=== PATIENT | female | born 2000 | race Caucasian/White ===

== ENCOUNTER 2021-08-25 23:00 | Inpatient (IN) | payer OTHER, SELFPAY ==
[2021-08-25 23:36] VITALS: BP 122/80; PULSE 100; RESP 18; TEMP 37.1; O2SAT 100; BMI 23.5
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
[2021-08-25] MEDS: LORazepam 1 MG TABLET 2 MG PO (23:57)
[2021-08-26 00:08] LABS: Appearance Urine CLOUDY; Color Urine DK YELLOW; Glucose Urine UA NEG (NEG); Leukocyte Esterase Urine NEG (NEG); Nitrite Urine NEG (NEG); Specific Gravity - Urine >= 1.030 (1.005-1.025); Urine Blood NEG (NEG); Urine Ketones 5 MG/DL (NEG); Urine Protein 2+ MG/DL (NEG-TRACE)
[2021-08-26 00:16] LABS: COVID-19 Test Negative (Negative)
[2021-08-26 00:17] LABS: Amphetamine Screen Urine Not Detected (Not Detect); Barbiturates, Urine Not Detected (Not Detect); Benzodiazepines Screen Urine POSITIVE (Not Detect); Cannabinoid Screen Urine POSITIVE (Not Detect); Cocaine Screen Urine POSITIVE (Not Detect); Fentanyl, urine Not Detected (Not Detect); Opiate Screen Urine Not Detected (Not Detect); Phencyclidine Screen Urine Not Detected (Not Detect)
[2021-08-26 00:28] LABS: Bacteria Urine 3+ /LPF; Mucus Urine 4+ /LPF; RBC Urine 0-2 /HPF (0); Squamous Epithelial Cell Urine 4+ /LPF
[2021-08-26 00:29] LABS: UPreg QC Valid YES; Urine Pregnancy NEGATIVE (NEGATIVE)
[2021-08-26 06:19] VITALS: BP 105/56; PULSE 87; RESP 16; TEMP 36.8; O2SAT 98
--- NOTE | 2021-08-26 06:24 | PC.NURSE ---
Patient slept through the night, no distress observed/reported, patient behavior is appropriate and cooperative, currently not on any medication, [facility] screened the patient in the community, section 12 inpatient bed search, will continue to monitor. VSS, will continue to monitor.
--- NOTE | 2021-08-26 07:21 | PC.NURSE ---
patient appears to remain asleep at present respirations are even and unlabored, patient appears in no distress
[2021-08-26 16:16] VITALS: BP 112/76; PULSE 84; RESP 16; TEMP 36.9; O2SAT 100
[2021-08-27 02:56] VITALS: BP 102/58; PULSE 76; RESP 18; TEMP 36.8; O2SAT 99
--- NOTE | 2021-08-27 05:53 | PC.NURSE ---
Patient slept through the night, no distress observed/reported, patient behavior is appropriate and cooperative, currently not on any medication, disposition per [facility] is section 12 inpatient bed search, will continue to monitor. VSS, will continue to monitor.
[2021-08-27] MEDS: LORazepam 1 MG TABLET PO ×3 (08:58→19:09)
[2021-08-27 09:13] VITALS: BP 117/68; PULSE 68; RESP 18; TEMP 36.6; O2SAT 100
--- NOTE | 2021-08-28 | ECG_ITS ---
Test Reason : qtc Blood Pressure : / mmHG Vent. Rate : 076 BPM Atrial Rate : 076 BPM P-R Int : 134 ms QRS Dur : 088 ms QT Int : 392 ms P-R-T Axes : 066 078 009 degrees QTc Int : 441 ms Normal sinus rhythm with sinus arrhythmia Normal ECG No previous ECGs available Referred By: Magaly Morales Electronically Signed By:Donavan Shoemaker
--- NOTE | 2021-08-28 06:27 | PC.NURSE ---
Patient slept through the night, no distress observed/reported, patient behavior is appropriate and cooperative, medication compliant, disposition per [facility] is section 12 inpatient bed search, will continue to monitor. VSS, will continue to monitor.
[2021-08-28 06:29] VITALS: BP 101/59; PULSE 90; RESP 16; TEMP 37.1; O2SAT 100
--- NOTE | 2021-08-28 07:14 | PC.NURSE ---
patient appears to remain asleep at present respirations are even and unlabored patient appears in no distress
[2021-08-28] MEDS: LORazepam 1 MG TABLET PO ×3 (08:47→17:19)
[2021-08-28] MEDS: Ondansetron ODT 4 MG TAB.RAPDIS TRANSLINGU (09:51)
[2021-08-28 14:00] LABS: COVID-19 Test Negative (Negative)
[2021-08-28 15:02] LABS: MANUAL DIFF FLAG NO
[2021-08-28 15:12] LABS: Basophils Percent Auto 0.4 % (0-2); Eosinophils Percent Auto 0.2 % (0-4); Hematocrit 36.2 % (37.0-47.0); Hemoglobin 11.7 g/dl (12.0-16.0); Imm Gran Abs Auto 0.01 X10*3/uL (0.00-0.03); Imm Gran Pct Auto 0.2 % (0.0-0.4); Lymphocytes Absolute Auto 1.3 X10*3/uL (1.2-4.9); Lymphocytes Percent Auto 25.7 % (20-40); Mean Corpuscular HGB Conc 32.3 g/dl (31.0-35.0); Mean Corpuscular Hemoglobin 25.8 pg (27.0-33.0); Mean Corpuscular Volume 79.9 fL (80.0-98.0); Mean Platelet Volume 8.8 fL (9.4-12.3); Monocytes Absolute Auto 0.5 X10*3/uL (0.1-1.2); Monocytes Percent Auto 9.8 % (2-11); Neutrophils Absolute Auto 3.1 x10*3/uL (2.0-8.3); Neutrophils Percent Auto 63.7 % (45-73); Platelet Count 349 X10*3/uL (160-400); Red Blood Count 4.53 X10*6/uL (4.20-5.50); Red Cell Distribution Width 16.6 % (11.0-16.0); White Blood Count 4.9 X10*3/uL (4.8-10.8)
[2021-08-28 15:18] LABS: Alanine Aminotransferase 14 U/L (0-31); Albumin Level 4.2 g/dL (3.5-5.0); Alkaline Phosphatase 48 U/L (39-117); Anion Gap 11 (12-20); Aspartate Amino Transferase 17 U/L (5-31); Bilirubin Total 0.6 mg/dL (0.0-1.0); Blood Urea Nitrogen 9 mg/dL (9-16); Calcium 9.3 mg/dL (8.4-10.2); Carbon Dioxide 27 mmol/L (22-29); Chloride 107 mmol/L (96-108); Estimated Glomerular Filt Rate > 60; Glucose Random 98 mg/dL (60-115); Potassium 4.2 mmol/L (3.3-5.1); Sodium 141 mmol/L (135-145); Total Protein 7.1 g/dL (6.5-8.0)
--- NOTE | 2021-08-28 16:32 | PC.NURSE ---
Patient is alert and oriented x 4 lung sounds are clear skin is pink warm and dry speaks in full sentences without difficulty verbalized understanding of admission to m3 room 319-1. escorted to the floor via wheelchair, security and staff with belongings
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
[2021-08-29 06:00] VITALS: BP 121/59; PULSE 73; TEMP 36.7; O2SAT 100
[2021-08-29 08:59] LABS: Cholesterol 145 mg/dL; HDL Cholesterol 29 mg/dL; LDL Cholesterol Calculated 105 mg/dl; Triglycerides 56 mg/dL
[2021-08-29 09:00] LABS: Estimated Average Glucose 97 mg/dL
[2021-08-29 09:19] LABS: Free T4 (Free Thyroxine) 1.01 ng/dL (0.71-1.85); Thyroid Stimulating Hormone 1.18 uIU/mL (0.32-4.0)
[2021-08-29 09:38] LABS: Folate 11.6 ng/mL (> or = 4.0); Vitamin B12 545 pg/mL (200-900)
[2021-08-29] MEDS: LORazepam 1 MG TABLET PO (10:56)
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
[2021-08-29] MEDS: PARoxetine HCL 20 MG TABLET PO (12:56)
[2021-08-29] MEDS: diazePAM 5 MG TABLET PO (12:56)
[2021-08-29] MEDS: clonazePAM 0.5 MG TABLET PO ×2 (15:01→20:09)
[2021-08-29 20:05] VITALS: BP 117/72; PULSE 70; RESP 16; TEMP 36.8; O2SAT 98
[2021-08-29] MEDS: traZODone HCL 100 MG TABLET PO (20:09)
[2021-08-30 06:00] VITALS: BP 111/55; PULSE 91; RESP 16; TEMP 36.6; O2SAT 98
[2021-08-30] MEDS: clonazePAM 0.5 MG TABLET PO ×3 (09:11→20:44)
[2021-08-30] MEDS: PARoxetine HCL 20 MG TABLET PO (09:11)
[2021-08-30] MEDS: diazePAM 5 MG TABLET PO ×2 (13:16→18:45)
--- NOTE | 2021-08-30 14:36 | HO.PSYCHPN ---
Subjective Subjective Date of Service: 08/30/21 Reason For Visit: Aggression Interim History: pt reports being up tossing and turning all night. feeling groggy this morning, which she attributes to the trazodone. agrees to DC trazodone in favor of remeron trial. reports her anxiety has improved a bit and that she has only taken the valium PRN once in the past 24H. concerned team would make her go to a rehab without her consent, reassured that that is not the plan. per staff, anx 10, dep 8. angry with MARSHA perez she heard from her mother that team was going to make her go to rehab. Mental Status Exam Mental Status Exam Narrative: appropriately dressed and groomed, cooperative with interview, no PMA/PMR. speech nml rate, amount, loudness, tone. decr latency. thoughts linear and logical. affect full range, consistent with context, normo-intense, non-labile. mood less depressed and anxious. +SI daily, no intent or plan. no HI/AVH expressed. Diagnostics Vital Signs (24Hr): Vital Signs - 24 hr 08/29/21 20:05 08/30/21 06:00 Temperature 98.2 F 97.8 F Pulse Rate 70 91 Respiratory Rate 16 16 Blood Pressure 117/72 111/55 L Pulse Oximetry 98 98 BMI result Body Mass Index 23.5 Labs Results: 08/28/21 14:57 08/28/21 14:57 Labs: Laboratory Results - last 48 hr 08/28/21 08/28/21 08/29/21 14:57 14:57 08:21 WBC 4.9 RBC 4.53 Hgb 11.7 L Hct 36.2 L MCV 79.9 L MCH 25.8 L MCHC 32.3 RDW 16.6 H Plt Count 349 MPV 8.8 L Immature Gran % (Auto) 0.2 Neut % (Auto) 63.7 Lymph % (Auto) 25.7 [place] % (Auto) 9.8 Eos % (Auto) 0.2 Baso % (Auto) 0.4 Lymph # (Auto) 1.3 [place] # (Auto) 0.5 Eos # (Auto) 0.0 Baso # (Auto) 0.0 Abs Immat Gran (auto) 0.01 Absolute Neuts (auto) 3.1 Absolute Nucleated RBC 0.000 Nucleated RBC % (auto) 0.0 Sodium 141 Potassium 4.2 Chloride 107 Carbon Dioxide 27 Anion Gap 11 L BUN 9 Creatinine 0.98 Estim Creat Clear Calc 89.0 Estimated GFR > 60 Random Glucose 98 Estimat Average Glucose 97 Hemoglobin A1c % 5.0 Calcium 9.3 Total Bilirubin 0.6 AST 17 ALT 14 Alkaline Phosphatase 48 Total Protein 7.1 Albumin 4.2 Triglycerides Cholesterol LDL Cholesterol, Calc HDL Cholesterol Vitamin B12 Folate TSH Free T4 08/29/21 08/29/21 08:21 08:21 WBC RBC Hgb Hct MCV MCH MCHC RDW Plt Count MPV Immature Gran % (Auto) Neut % (Auto) Lymph % (Auto) [place] % (Auto) Eos % (Auto) Baso % (Auto) Lymph # (Auto) [place] # (Auto) Eos # (Auto) Baso # (Auto) Abs Immat Gran (auto) Absolute Neuts (auto) Absolute Nucleated RBC Nucleated RBC % (auto) Sodium Potassium Chloride Carbon Dioxide Anion Gap BUN Creatinine Estim Creat Clear Calc Estimated GFR Random Glucose Estimat Average Glucose Hemoglobin A1c % Calcium Total Bilirubin AST ALT Alkaline Phosphatase Total Protein Albumin Triglycerides 56 Cholesterol 145 LDL Cholesterol, Calc 105 HDL Cholesterol 29 Vitamin B12 545 Folate 11.6 TSH 1.18 Free T4 1.01 Medications Medications Current Medications Acetaminophen (Acetaminophen 325 Mg Tablet) 650 mg PO Q6H PRN PRN Reason: Headache/Pain Mild Scale (1-3) Al Hydroxide/Mg Hydroxide (Magnesium Hydrox/Alum Hydrox 30 Ml Oral.Susp) 30 ml PO Q6H PRN PRN Reason: Heartburn/Nausea Clonazepam (Clonazepam 0.5 Mg Tablet) 0.5 mg PO TID [facility] Last Admin: 08/30/21 09:11 Dose: 0.5 mg Documented by: Diazepam (Diazepam 5 Mg Tablet) 5 mg PO Q4H PRN PRN Reason: panic Last Admin: 08/30/21 13:16 Dose: 5 mg Documented by: Hydroxyzine HCl (Hydroxyzine Hcl 25 Mg Tablet) 25 mg PO Q6H PRN PRN Reason: Anxiety Magnesium Hydroxide (Milk Of Magnesia 30 Ml Oral.Susp) 30 ml PO DAILY PRN PRN Reason: Constipation Mirtazapine (Mirtazapine 7.5 Mg Tablet) 7.5 mg PO BEDTIME MRX1 [facility] Paroxetine HCl (Paroxetine Hcl 20 Mg Tablet) 20 mg PO DAILY [facility] Last Admin: 08/30/21 09:11 Dose: 20 mg Documented by: Allergies Allergies Allergy/AdvReac Type Severity Reaction Status Date / Time gluten Allergy Intermediate Diarrhea Verified 08/27/21 03:14 Assessment & Plan Assessment & Plan (1) PTSD (post-traumatic stress disorder): Status: Acute Code(s): F43.10 - Post-traumatic stress disorder, unspecified (2) Depression, unspecified: Status: Acute Code(s): F32.A - Depression, unspecified Assessment and Plan: started paxil 20 mg daily 08/29. started valium PRNs of 5 mg Q4H for PANIC on 08/29. started scheduled klonopin 0.5 mg TID 08/29. trazodone 100 mg QHS for insomnia, MR x1 left pt feeling groggy 08/30. trial of remeron 7.5 mg MR x 1 started 08/30. I spent minutes with the patient and/or on the patient floor today, greater than?50% of which was spent counseling/coordinating care. Reason for contiued inpatient stay Substantial Risk for: harm to self and rapid decompensation
[2021-08-30] MEDS: Mirtazapine 7.5 MG TABLET PO ×2 (20:43→21:51)
[2021-08-30 20:46] VITALS: BP 100/60; PULSE 71; TEMP 36.4; O2SAT 98
[2021-08-31 07:00] VITALS: BMI 22.4
[2021-08-31] MEDS: clonazePAM 0.5 MG TABLET PO ×2 (09:58→20:15)
[2021-08-31] MEDS: PARoxetine HCL 20 MG TABLET PO (09:58)
[2021-08-31 10:00] VITALS: BP 113/59; PULSE 68; RESP 16; TEMP 36.4; O2SAT 99
[2021-08-31] MEDS: clonazePAM 1 MG TABLET 0.75 MG PO (12:52)
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
[2021-08-31] MEDS: diazePAM 5 MG TABLET PO (15:37)
[2021-08-31 20:09] VITALS: BP 110/68; PULSE 69; TEMP 36.8; O2SAT 99
[2021-08-31] MEDS: Mirtazapine 7.5 MG TABLET PO (22:20)
[2021-09-01] MEDS: PARoxetine HCL 20 MG TABLET PO (10:16)
[2021-09-01] MEDS: clonazePAM 0.5 MG TABLET PO ×4 (10:16→21:25)
[2021-09-01 10:20] VITALS: BP 119/75; PULSE 60; TEMP 36.8; O2SAT 98
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
[2021-09-01 21:25] VITALS: BP 115/63; PULSE 60; TEMP 36.3; O2SAT 99
[2021-09-01] MEDS: Mirtazapine 7.5 MG TABLET PO (21:25)
[2021-09-02 06:00] VITALS: BP 93/53; PULSE 60; RESP 18; TEMP 37.2; O2SAT 97
[2021-09-02] MEDS: clonazePAM 0.5 MG TABLET PO ×4 (09:37→20:27)
[2021-09-02] MEDS: PARoxetine HCL 20 MG TABLET PO (09:37)
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
[2021-09-02 18:20] VITALS: BP 113/65; PULSE 59; RESP 18; TEMP 36.5; O2SAT 100
[2021-09-02] MEDS: Mirtazapine 7.5 MG TABLET PO (21:32)
[2021-09-03 09:18] VITALS: BP 119/72; PULSE 73; RESP 15; TEMP 36.6; O2SAT 99
[2021-09-03] MEDS: clonazePAM 0.5 MG TABLET PO ×4 (09:18→22:04)
[2021-09-03] MEDS: PARoxetine HCL 20 MG TABLET PO (09:19)
[2021-09-03] MEDS: Carbamide Peroxide 6.5% Otic 15 ML DRPBTL 5 DROP EAR-BOTH (11:18)
--- NOTE | 2021-09-03 11:23 | HO.PSYCHPN ---
Subjective Subjective Date of Service: 09/03/21 Reason For Visit: Aggression Interim History: no significant changes since yesterday. Overall continues to report feeling good. Looking forward to discharge planning on Saturday. Reported feeling of water and her left ear and open to trying ear drops today. Unclear why they were reluctant to try these yesterday. Sleep energy and appetite good. No medication concerns. Medication Compliance: Yes Side effects from medications: No Attending Groups: Yes Review of Systems Acute medical concerns: No Review of Systems Review of Systems Unremarkable Mental Status Exam Mental Status Exam Narrative: pleasant and engaged. Casually dressed with fair hygiene. Euthymic. No SI. No HI. No agitation. No psychosis. Insight and judgment fair Diagnostics Vital Signs (24Hr): Vital Signs - 24 hr 09/02/21 18:20 09/03/21 09:18 Temperature 97.7 F 97.8 F Pulse Rate 59 73 Respiratory Rate 18 15 Blood Pressure 113/65 119/72 Pulse Oximetry 100 99 BMI result Body Mass Index 22.4 Labs Results: 08/28/21 14:57 08/28/21 14:57 Medications Medications Current Medications Acetaminophen (Acetaminophen 325 Mg Tablet) 650 mg PO Q6H PRN PRN Reason: Headache/Pain Mild Scale (1-3) Al Hydroxide/Mg Hydroxide (Magnesium Hydrox/Alum Hydrox 30 Ml Oral.Susp) 30 ml PO Q6H PRN PRN Reason: Heartburn/Nausea Clonazepam (Clonazepam 0.5 Mg Tablet) 0.5 mg PO QID [facility] Last Admin: 09/03/21 09:18 Dose: 0.5 mg Documented by: Diazepam (Diazepam 5 Mg Tablet) 5 mg PO Q4H PRN PRN Reason: panic Last Admin: 08/31/21 15:37 Dose: 5 mg Documented by: Hydroxyzine HCl (Hydroxyzine Hcl 25 Mg Tablet) 25 mg PO BEDTIME PRN PRN Reason: Insomnia Magnesium Hydroxide (Milk Of Magnesia 30 Ml Oral.Susp) 30 ml PO DAILY PRN PRN Reason: Constipation Mirtazapine (Mirtazapine 7.5 Mg Tablet) 7.5 mg PO BEDTIME [facility] Last Admin: 09/02/21 21:32 Dose: 7.5 mg Documented by: Paroxetine HCl (Paroxetine Hcl 20 Mg Tablet) 20 mg PO DAILY [facility] Last Admin: 09/03/21 09:19 Dose: 20 mg Documented by: Allergies Allergies Allergy/AdvReac Type Severity Reaction Status Date / Time gluten Allergy Intermediate Diarrhea Verified 08/27/21 03:14 Assessment & Plan Assessment & Plan (1) PTSD (post-traumatic stress disorder): Status: Acute Code(s): F43.10 - Post-traumatic stress disorder, unspecified (2) Depression, unspecified: Status: Acute Code(s): F32.A - Depression, unspecified Assessment and Plan: started paxil 20 mg daily 08/29. started valium PRNs of 5 mg Q4H for PANIC on 08/29. started scheduled klonopin 0.5 mg TID 08/29. dosing changed to 0.5/0.75/0.5 on 08/31. dosing changed to 0.5 mg qid 09/01. trazodone 100 mg QHS for insomnia, MR x1 left pt feeling groggy 08/30. trial of remeron 7.5 mg MR x 1 started 08/30. remeron 15 mg was too sedating so plan changed to remeron 7.5 plus hydroxyzine 25 PRN. sleeping well on remeron 7.5 mg QHS with klonopin as well. discharge saturday to outpt F/U. 09/03/2021: No changes to primary team treatment plan I spent minutes with the patient and/or on the patient floor today, greater than?50% of which was spent counseling/coordinating care. Reason for contiued inpatient stay Substantial Risk for: rapid decompensation
[2021-09-03] MEDS: Magnesium Hydrox/Alum Hydrox 30 ML ORAL.SUSP PO (18:13)
--- NOTE | 2021-09-03 18:34 | PC.NURSE ---
Patient ordered a burger on a gluten free roll. When the kitchen brought up the food cart at 18:15, pt's gluten-free bread was on the side but the burger was on a regular roll. Pt has Celiac's disease and requires her meals to be gluten-free, and as a result she was unable to eat her dinner. When we called the kitchen at 18:20, they told us that nothing could be done because the kitchen had already closed. Pt was unable to eat anything for dinner. This incident has occurred multiple times since patient has been admitted; Annie (RN) emailed Fish.
[2021-09-03 21:41] VITALS: BP 105/57; PULSE 64; RESP 18; TEMP 36.5; O2SAT 98
[2021-09-03] MEDS: Mirtazapine 7.5 MG TABLET PO (22:04)
[2021-09-04 08:00] VITALS: BP 113/62; PULSE 64; TEMP 36.6; O2SAT 99
[2021-09-04] MEDS: clonazePAM 0.5 MG TABLET PO ×4 (08:50→20:14)
[2021-09-04] MEDS: PARoxetine HCL 20 MG TABLET PO (08:50)
--- NOTE | 2021-09-04 15:59 | HO.PSYCHPN ---
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 she is smiling, positive, states her anxiety is under good control. sleeping well, planning to discharge tomorrow at 11, no other complaints or requests. per staff, visible, watching TV, social. feels all right. decreased appetite, upset dietary has not been providing her with a gluten-free diet. no SI/HI. Mental Status Exam Mental Status Exam Narrative: appropriately dressed and groomed, cooperative with interview, no PMA/PMR. speech nml rate, amount, loudness, tone, latency. thoughts linear and logical. affect full range, consistent with context, normo-intense, non-labile. depression and anxiety improved. no SI/HI/AVH expressed. Diagnostics Vital Signs (24Hr): Vital Signs - 24 hr 09/03/21 21:41 09/04/21 08:00 Temperature 97.7 F 98 F Pulse Rate 64 64 Respiratory Rate 18 Blood Pressure 105/57 L 113/62 Pulse Oximetry 98 99 BMI result Body Mass Index 22.4 Labs Results: 08/28/21 14:57 08/28/21 14:57 Medications Medications Current Medications Acetaminophen (Acetaminophen 325 Mg Tablet) 650 mg PO Q6H PRN PRN Reason: Headache/Pain Mild Scale (1-3) Al Hydroxide/Mg Hydroxide (Magnesium Hydrox/Alum Hydrox 30 Ml Oral.Susp) 30 ml PO Q6H PRN PRN Reason: Heartburn/Nausea Last Admin: 09/03/21 18:13 Dose: 30 ml Documented by: Clonazepam (Clonazepam 0.5 Mg Tablet) 0.5 mg PO QID [facility] Last Admin: 09/04/21 12:54 Dose: 0.5 mg Documented by: Hydroxyzine HCl (Hydroxyzine Hcl 25 Mg Tablet) 25 mg PO BEDTIME PRN PRN Reason: Insomnia Magnesium Hydroxide (Milk Of Magnesia 30 Ml Oral.Susp) 30 ml PO DAILY PRN PRN Reason: Constipation Mirtazapine (Mirtazapine 7.5 Mg Tablet) 7.5 mg PO BEDTIME [facility] Last Admin: 09/03/21 22:04 Dose: 7.5 mg Documented by: Paroxetine HCl (Paroxetine Hcl 20 Mg Tablet) 20 mg PO DAILY [facility] Last Admin: 09/04/21 08:50 Dose: 20 mg Documented by: Allergies Allergies Allergy/AdvReac Type Severity Reaction Status Date / Time gluten Allergy Intermediate Diarrhea Verified 08/27/21 03:14 Assessment & Plan Assessment & Plan (1) PTSD (post-traumatic stress disorder): Status: Acute Code(s): F43.10 - Post-traumatic stress disorder, unspecified (2) Depression, unspecified: Status: Acute Code(s): F32.A - Depression, unspecified Assessment and Plan: started paxil 20 mg daily 08/29. started valium PRNs of 5 mg Q4H for PANIC on 08/29. started scheduled klonopin 0.5 mg TID 08/29. dosing changed to 0.5/0.75/0.5 on 08/31. dosing changed to 0.5 mg qid 09/01. trazodone 100 mg QHS for insomnia, MR x1 left pt feeling groggy 08/30. trial of remeron 7.5 mg MR x 1 started 08/30. remeron 15 mg was too sedating so plan changed to remeron 7.5 plus hydroxyzine 25 PRN. sleeping well on remeron 7.5 mg QHS with klonopin as well. discharge saturday to pt F/U. I spent minutes with the patient and/or on the patient floor today, greater than?50% of which was spent counseling/coordinating care. Reason for contiued inpatient stay Substantial Risk for: inability to function and rapid decompensation
[2021-09-04 18:00] VITALS: BP 112/54; PULSE 64; TEMP 36.7; O2SAT 100
[2021-09-04] MEDS: Mirtazapine 7.5 MG TABLET PO (20:14)
[2021-09-05] MEDS: PARoxetine HCL 20 MG TABLET PO (08:32)
[2021-09-05] MEDS: clonazePAM 0.5 MG TABLET PO (08:55)
[2021-09-05 09:00] VITALS: BP 110/57; PULSE 61; RESP 16; TEMP 36.7; O2SAT 99
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
== END 2021-09-05 11:05 | disposition home or self-care (01) | DRG 754 ==
LOC: HO.ED 08-28 11:33 → HO.PADLT16 08-28 16:24
PROVIDERS: Physician Assistant; Social Worker; Admitting Provider Psychiatry & Neurology Psychiatry; Emergency Provider Emergency Medicine Emergency Medical Services; Visit Provider Psychiatry & Neurology Psychiatry
DX: F32.A Depression, unspecified (principal); R45.851 Suicidal ideations; K90.0 Celiac disease; F43.10 Post-traumatic stress disorder, unspecified; Z20.822 Contact with and (suspected) exposure to COVID-19; Z79.899 Other long term (current) drug therapy
CPT/HCPCS: 36415; 80053; 80061; 80307; 81001; 81003; 81025; 82607; 82746; 83036; 84439; 84443; 85025; 87635; 93005; 99284

== ENCOUNTER 2024-05-05 22:39 | Emergency (ER) | payer OTHER, SELFPAY ==
--- NOTE | ~2024-05-05 | CT_ITS ---
EXAMINATION: CT ABDOMEN AND PELVIS WITHOUT CONTRAST CLINICAL INFORMATION: Right CVA tenderness. COMPARISON: None available. TECHNIQUE: Multidetector volumetric imaging was performed from the superior aspect of the liver through the pubic symphysis. Sagittal and coronal reformatted images were obtained on the technologist's workstation. This CT examination was performed using dose optimization techniques as appropriate, variously including the following: *Automated exposure control *Adjustment of mA and/or kV according to patient size (this includes techniques or standardized protocols for targeted exams where dose is matched to indication/reason for exam; i.e. extremities or head) *Use of iterative reconstruction technique DLP: 630 mGy-cm FINDINGS: LUNG BASES: The visualized lung bases are unremarkable. LIVER, GALLBLADDER, AND BILIARY TREE: The liver is normal in size, shape, and attenuation. No focal hepatic lesion or biliary ductal dilatation is present. Multiple gallstones are seen within a nondistended gallbladder. PANCREAS: Unremarkable. SPLEEN: Unremarkable. ADRENAL GLANDS: Unremarkable. KIDNEYS AND URETERS: The kidneys are normal in size, shape, and attenuation. No hydronephrosis, hydroureter, or calculi seen. No perinephric stranding. There appears to be mild right ureteral thickening. No ureteral calculi are seen. BLADDER: Unremarkable. GASTROINTESTINAL TRACT: The small and large bowel are unremarkable. The appendix is unremarkable. ABDOMINAL WALL: No significant hernia is appreciated. LYMPH NODES: Normal. VASCULAR: Unremarkable. PELVIC VISCERA: Unremarkable. OSSEOUS STRUCTURES: Unremarkable. CT/CT abdomen pelvis wo IV con IMPRESSION: 1. No renal calculi are seen. 2. There appears to be mild right ureteral thickening which could be due to a recently passed stone versus ascending infection. 3. Cholelithiasis without cholecystitis. Fleischner guidelines were followed. Electronically signed by: Jong Lombardi MD 05/06/2024 04:49 AM EDT
[2024-05-05 22:41] VITALS: BP 150/88; PULSE 109; RESP 18; TEMP 36.8; O2SAT 98; BMI 31.1
[2024-05-05 23:08] LABS: MANUAL DIFF FLAG NO
[2024-05-05 23:11] LABS: Basophils Percent Auto 0.5 % (0-2); Eosinophils Absolute Auto 0.2 X10*3/uL (0.0-0.4); Eosinophils Percent Auto 3.2 % (0-4); Hematocrit 34.1 % (37.0-47.0); Hemoglobin 11.3 g/dl (12.0-16.0); Imm Gran Abs Auto 0.02 X10*3/uL (0.00-0.03); Imm Gran Pct Auto 0.4 % (0.0-0.4); Lymphocytes Percent Auto 35.2 % (20-40); Mean Corpuscular HGB Conc 33.1 g/dl (31.0-35.0); Mean Corpuscular Hemoglobin 25.5 pg (27.0-33.0); Monocytes Absolute Auto 0.4 X10*3/uL (0.1-1.2); Monocytes Percent Auto 7.8 % (2-11); Neutrophils Percent Auto 52.9 % (45-73); Platelet Count 393 X10*3/uL (160-400); Red Blood Count 4.43 X10*6/uL (4.20-5.50); Red Cell Distribution Width 17.2 % (11.0-16.0); White Blood Count 5.7 X10*3/uL (4.8-10.8)
[2024-05-05 23:30] LABS: Alanine Aminotransferase 14 U/L (0-31); Albumin Level 4.4 g/dL (3.5-5.0); Alkaline Phosphatase 55 U/L (39-117); Anion Gap 12 (12-20); Aspartate Amino Transferase 15 U/L (5-31); Bilirubin Total 0.3 mg/dL (0.0-1.0); Blood Urea Nitrogen 10 mg/dL (9-16); Calcium 9.3 mg/dL (8.4-10.2); Carbon Dioxide 21 mmol/L (22-29); Chloride 110 mmol/L (96-108); Creatinine Clr Calc Pharmacy 129.3; Estimated Glomerular Filt Rate > 60; Glucose Random 120 mg/dL (60-115); Potassium 3.7 mmol/L (3.3-5.1); Sodium 139 mmol/L (135-145); Total Protein 7.8 g/dL (6.5-8.0)
[2024-05-06 00:23] LABS: Appearance Urine Cloudy; Color Urine Yellow; Glucose Urine UA Negative (Negative); Leukocyte Esterase Urine Large (3+) (Negative); Nitrite Urine Negative (Negative); Specific Gravity - Urine <= 1.005 (1.005-1.025); UMIC TRIGGER UACC YES; Urine Blood Moderate (2+) (Negative); Urine Ketones Negative (Negative); Urine Protein Trace mg/dL (Neg-Trace)
[2024-05-06 00:24] LABS: UPreg QC Valid YES; Urine Pregnancy NEGATIVE (NEGATIVE)
[2024-05-06 00:39] LABS: Bacteria Urine None Seen (None Seen); Hyaline Casts Urine 0-2 /LPF (0-2); RBC Urine 0-2 /HPF (0-2); Squamous Epithelial Cell Urine 0-2 /HPF (0-2); UACC Culture Trigger YES; WBC Urine >50 /HPF (0-5)
--- NOTE | 2024-05-06 01:16 | ED.FEMALEGU ---
HPI - Female Genitourinary General Chief complaint: Urogenital-Female Stated complaint: ? uti Time Seen by Provider: 05/06/24 01:16 Source: patient Mode of arrival: ambulatory Limitations: no limitations History of Present Illness HPI Narrative: Patient is a 24-year-old female who presents emergency department for evaluation. She states that for the past 5 days she has been experiencing right-sided lower/mid abdominal pain and right flank pain. Admits to dark yellow appearing urine occasionally with burning sensation. She also states she is experiencing urinary hesitancy. At times she notices small amounts of alexis blood in the urine. She states that she has a history of ?urinary tract infections? that sometimes last for a day and resolve, described as having similar symptoms as previously mentioned. She states she has not previously received treatment with antibiotics for any urinary infections, she treats them with water and cranberry juice. She has chronic constipation that she states is due to her celiac disease. When asked whether she is concern for sexually transmitted infection she does admit to having new female partners, denies vaginal itching or discharge. She declines to have a genital examination. States she is not currently menstruating. Related Data Previous Rx's ?Medication ?Instructions ?Recorded clonazepam 0.5 mg tablet 0.5 mg PO QID 30 days #120 tabs 09/05/21 mirtazapine 7.5 mg tablet 7.5 mg PO BEDTIME 30 days #30 tabs 09/05/21 paroxetine HCl 20 mg tablet 20 mg PO DAILY 30 days #30 tabs 09/05/21 cefuroxime axetil 250 mg tablet 250 mg PO BID #12 tabs 05/06/24 Allergies Allergy/AdvReac Type Severity Reaction Status Date / Time gluten Allergy Intermediate Diarrhea Verified 05/05/24 22:42 Review of Systems Review of Systems: Yes all other systems are reviewed and are negative PMFSH Past Medical History Attestation statement: The following information was validated with the patient. Medical History Marijuana abuse Cocaine abuse Benzodiazepine abuse Social History Social History Household Members: Family Housing: Apartment Do you presently have visiting nurse or other home services: No Patient Tobacco Use Status: Never used Tobacco Substance Use Type: Prescription Drugs Do you have a plan to hurt others: No Plan service: No Sexual orientation: Don't Know Physical Exam Vital Signs: Vital Signs: Last Vital Signs Temp 98.2 F 05/05/24 22:41 Pulse 109 H 05/05/24 22:41 Resp 18 05/05/24 22:41 BP 150/88 H 05/05/24 22:41 Pulse Ox 98 05/05/24 22:41 O2 Del Method Room Air 05/05/24 22:41 BMI result Body Mass Index 31.1 Appearance: Alert.?Oriented to person, place and time. No acute distress.?Normal affect. Neck: Normal inspection.? Neck supple.?? CVS: Heart sounds normal. Normal heart rate and rhythm.? Pulses normal.?? Respiratory: No respiratory distress.? Lung sounds clear to auscultation bilaterally?? Abdomen: Soft with mild diffuse right abdominal tenderness upon palpation. No rebound tenderness. No rigidity. No guarding. Positive right CVAT. Normoactive bowel sounds. No pulsatile mass.?? Skin: Skin warm and dry.? Normal skin color.? ? Extremities: No lower extremity edema.? No calf ttp? Neuro: Moves all extremities spontaneously. Sensation intact bilaterally. Ambulates with normal steady gait. Course Reevaluation(s) Reevaluation #1: Patient signed out to doctor's [address] abdomen and pelvis, disposition Time: 02:00 Medical Decision Making Medical Decision Making MDM Narrative: Patient is a 24-year-old female who presents emergency department for evaluation of right-sided abdominal/flank pain with symptoms as per HPI. She expresses concern for sexually transmitted infection, she declines to have urogenital or pelvic examination. She is amenable to self swabbing for CT/NG and bacterial vaginosis panel. Given her intermittent episodes of urinary hesitancy, intermittent small amounts of hematuria, concern for possible urinary tract infection/pyelonephritis given her associated flank pain and CVAT on examination versus nephrolithiasis. She is endorsing chronic constipation but states this is no worse than typical, has not experienced associated diarrhea, nausea, vomiting, fevers, chills. Differential Diagnosis Differential Diagnoses: The differential diagnosis associated with the presentation includes (See narrative above) Admission/Observation Consideration of admission/observation: Escalation of care including admission/observation considered (See narrative above) Lab Data [facility] Lab Attestation statement: I reviewed the patient's lab results. CBC is without leukocytosis, microcytic anemia that does not meet transfusion criteria, no thrombocytopenia. No significant electrolyte derangement. No LAW. LFTs within normal range. Urinalysis with microscopic hematuria, 3+ leukocyte esterase, > 50 WBC but no urine bacteria seen. HCG is negative. 05/05/24 22:56 05/05/24 22:56 Labs: Lab Results 05/05/24 05/06/24 Range/Units 22:56 00:14 WBC 5.7 (4.8-10.8) X10*3/uL RBC 4.43 (4.20-5.50) X10*6/uL Hgb 11.3 L (12.0-16.0) g/dl Hct 34.1 L (37.0-47.0) % MCV 77.0 L (80.0-98.0) fL MCH 25.5 L (27.0-33.0) pg MCHC 33.1 (31.0-35.0) g/dl RDW 17.2 H (11.0-16.0) % Plt Count 393 (160-400) X10*3/uL MPV 9.0 L (9.4-12.3) fL Immature Gran % (Auto) 0.4 (0.0-0.4) % Neut % (Auto) 52.9 (45-73) % Lymph % (Auto) 35.2 (20-40) % [place] % (Auto) 7.8 (2-11) % Eos % (Auto) 3.2 (0-4) % Baso % (Auto) 0.5 (0-2) % Lymph # (Auto) 2.0 (1.2-4.9) X10*3/uL [place] # (Auto) 0.4 (0.1-1.2) X10*3/uL Eos # (Auto) 0.2 (0.0-0.4) X10*3/uL Baso # (Auto) 0.0 (0.0-0.2) X10*3/uL Abs Immat Gran (auto) 0.02 (0.00-0.03) X10*3/uL Absolute Neuts (auto) 3.0 (2.0-8.3) x10*3/uL Absolute Nucleated RBC 0.000 (0.0-0.012) X10*3/uL Nucleated RBC % (auto) 0.0 (0.0-0.2) /100WBC Sodium 139 (135-145) mmol/L Potassium 3.7 (3.3-5.1) mmol/L Chloride 110 H (96-108) mmol/L Carbon Dioxide 21 L (22-29) mmol/L Anion Gap 12 (12-20) BUN 10 (9-16) mg/dL Creatinine 0.78 (0.5-1.4) mg/dL Estim Creat Clear Calc 129.3 Estimated GFR > 60 Random Glucose 120 H (60-115) mg/dL Calcium 9.3 (8.4-10.2) mg/dL Total Bilirubin 0.3 (0.0-1.0) mg/dL AST 15 (5-31) U/L ALT 14 (0-31) U/L Alkaline Phosphatase 55 (39-117) U/L Total Protein 7.8 (6.5-8.0) g/dL Albumin 4.4 (3.5-5.0) g/dL Urine Color Yellow Urine Appearance Cloudy Urine pH 6.0 (5.0-9.0) Ur Specific [place] <= 1.005 (1.005-1.025) Urine Protein Trace (Neg-Trace) mg/dL Urine Glucose (UA) Negative (Negative) mg/dL Urine Ketones Negative (Negative) mg/dL Urine Blood Moderate (2+) H (Negative) Urine Nitrite Negative (Negative) Ur Leukocyte Esterase Large (3+) H (Negative) Urine RBC 0-2 (0-2) /HPF Urine WBC >50 H (0-5) /HPF Ur Squamous Epith Cells 0-2 (0-2) /HPF Urine Bacteria None Seen (None Seen) Hyaline Casts 0-2 (0-2) /LPF Urine Test NEGATIVE (NEGATIVE) Radiology Impression Discussion of test interpretation with radiology: I have reviewed the radiologist's reading. External Record Review External record reviewed: Outpatient record Prescription Management I considered prescription management with: Pain Medication and Antibiotic Discharge Plan Discharge Clinical Impression: Urinary tract infection Patient Disposition: Still a Patient Prescriptions: New cefuroxime axetil 250 mg tablet 250 mg PO BID Qty: 12 0RF No Action clonazepam 0.5 mg Tablet 0.5 mg PO QID 30 Days Qty: 120 0RF paroxetine HCl 20 mg Tablet 20 mg PO DAILY 30 Days Qty: 30 0RF mirtazapine 7.5 mg Tablet 7.5 mg PO BEDTIME 30 Days Qty: 30 0RF Print Language: Japanese
[2024-05-06] MEDS: Ketorolac Tromethamine 15 MG/ML VIAL IVPUSH (01:57)
[2024-05-06 02:00] VITALS: BP 118/60; PULSE 90; RESP 16; TEMP 36.9; O2SAT 98
[2024-05-06] MEDS: cefTRIAXone sodium 1 GM in 0.9 % Sodium Chloride 50 ML IV (02:10)
[2024-05-06 04:00] VITALS: BP 113/69; PULSE 77; RESP 18; TEMP 36.8; O2SAT 99
[2024-05-06 05:52] VITALS: BP 118/72; PULSE 72; RESP 16; TEMP 36.7; O2SAT 97
[2024-05-06 13:01] LABS: Bacterial Vaginosis PCR NEGATIVE (Negative); Candida Group PCR DETECTED (Not Detect); Candida glab krusei PCR NOT DETECTED (Not Detect); Trichomonas vaginalis PCR NOT DETECTED (Not Detect)
== END 2024-05-06 05:54 | disposition home or self-care (01) ==
PROVIDERS: Nurse Practitioner Family; Emergency Provider Internal Medicine
DX: B37.49 Other urogenital candidiasis (principal); R10.30 Lower abdominal pain, unspecified
CPT/HCPCS: 0352U; 36415; 74176; 80053; 81001; 81025; 85025; 87086; 87088; 87186; 96365; 96375; 99284; J0696; J1885

== ENCOUNTER 2024-06-12 06:51 | Emergency (ER) | payer OTHER, SELFPAY ==
[2024-06-12 07:09] VITALS: BP 139/75; BP 144/80; PULSE 84; PULSE 91; RESP 16; TEMP 36.4; O2SAT 97; O2SAT 98; BMI 31.2
--- NOTE | 2024-06-12 07:24 | ED_ITS ---
HPI - Animal Bite General Chief Complaint: Animal Bite Stated Complaint: bit by dog @4-5pm 06/11, numbness where bit Time Seen by Provider: 06/12/24 07:06 Source: patient, EMS, RN notes reviewed and old records reviewed Mode of arrival: EMS History of Present Illness ED Provider: Willa Maguire PA-C HPI narrative: 24-year-old female with a past medical history PTSD, anxiety, presenting to the ED complaining of dog bite to left calf that occurred last night around 17:00 when her dog & another dog that were in a fight. 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 Patient is not up-to-date on vaccination. Denies injury to other area. Reports associated paresthesias to LLE. Related Data Previous Rx's ?Medication ?Instructions ?Recorded clonazepam 0.5 mg tablet 0.5 mg PO QID 30 days #120 tabs 09/05/21 mirtazapine 7.5 mg tablet 7.5 mg PO BEDTIME 30 days #30 tabs 09/05/21 paroxetine HCl 20 mg tablet 20 mg PO DAILY 30 days #30 tabs 09/05/21 cefuroxime axetil 250 mg tablet 250 mg PO BID #12 tabs 05/06/24 fluconazole 150 mg tablet 150 mg PO Q3D 2 doses #2 tabs 05/08/24 nitrofurantoin 100 mg PO Q12H 7 days #14 caps 05/08/24 monohydrate/macrocrystals 100 mg capsule (Macrobid) amoxicillin 875 mg-potassium 1 tab PO BID 7 days #14 tabs 06/12/24 clavulanate 125 mg tablet bacitracin 500 unit/gram topical 1 appl topical BID #30 grams 06/12/24 ointment Allergies Allergy/AdvReac Type Severity Reaction Status Date / Time gluten Allergy Intermediate Diarrhea Verified 06/12/24 07:13 Review of Systems Review of Systems: Yes all other systems are reviewed and are negative Constitutional: Constitutional: Reports as per HPI [facility] Past Medical History Attestation statement: The following information was validated with the patient. Source: old records reviewed Medical History Marijuana abuse Cocaine abuse Benzodiazepine abuse Social History Social History Household Members: Family Housing: Apartment Do you presently have visiting nurse or other home services: No Patient Tobacco Use Status: Never used Tobacco Substance Use Type: Prescription Drugs Advance Directives: No Advance Directives Information Provided: Yes Do you have a plan to hurt others: No Plan service: No Sexual orientation: Don't Know Physical Exam ED Vital Signs: Vital Signs - 24 hr 06/12/24 07:09 06/12/24 07:59 Temperature 97.6 F 97.6 F Pulse Rate 84 84 Respiratory Rate 16 16 Blood Pressure 139/75 139/75 Pulse Oximetry 98 98 Oxygen Delivery Method Room Air Room Air BMI result Body Mass Index 31.2 Const General: cooperative, healthy appearing and no acute distress Orientation/consciousness: patient oriented x3 Limitations: no limitations HENMT Head: Yes normal to inspection and Yes atraumatic Ears: hearing grossly normal bilaterally General nose exam: Normal external nose present Face and sinus: Yes normal facial exam Eyes General: appearance normal, both eyes and all related structures EOM: EOMs intact bilaterally Neck Neck: Yes normal visual inspection and Yes no meningeal signs Resp Effort & Inspection: normal respiratory effort and no respiratory distress Cardio Rate: regular rate Skin Other: Superficial abrasion and small puncture wound noted to left calf with surrounding ecchymosis. Tender to palpation. No fluctuance/induration or active drainage. No crepitus. Neurovascularly intact distally. Rashes: no rashes Neuro General: patient oriented x3, tone normal and no meningeal signs Cranial nerves: Yes CN's II-XII intact bilaterally Gait exam (Neuro): Normal gait present Extrem General: Yes normal to inspection Medications Administered Discontinued Medications Generic Name Dose Route Start Last Admin Trade Name Freq PRN Reason Stop Dose Admin Amoxicillin/Clavulanate Potassium 875 mg 06/12/24 07:24 06/12/24 07:43 Amoxicillin/Potassium Clav 875 Mg Tablet PO 06/12/24 07:25 875 mg ONCE ONE Administration Diphtheria/Tetanus/Acell Pertussis 0.5 ml 06/12/24 07:24 06/12/24 07:43 Diphth,Pertus(Acell),Tet Adult 0.5 Ml Syringe IM 06/12/24 07:25 0.5 ml .ONCE ONE Administration Medical Decision Making Medical Decision Making MDM Narrative: 24-year-old female with a past medical history PTSD, anxiety, presenting to the ED complaining of dog bite to left calf that occurred last night around 17:00 when her dog & another dog that were in a fight. On exam vital signs stable, NAD, nontoxic appearing, physical exam as noted above. Puncture wound/abrasion and ecchymosis noted to left calf. Wounds not needing suture repair. No appreciable surrounding cellulitis or abscess formation. Dog is up-to-date on vaccinations. Patient is not up-to-date. Plan: Tdap, p.o. Augmentin, PCP follow-up Please refer to course for remaining clinical decision making, interpretation of labs/imaging results, and discussions with consultants and/or family members. Results discussed with patient including worrisome signs and symptoms and strict return precautions, and when to return to the emergency department. They verbalized understanding and feel safe for discharge at this time. Differential Diagnosis Differential Diagnoses: The differential diagnosis associated with the presentation includes As above External Record Review External record reviewed: Inpatient record, Office record, Outpatient record, Prior outpatient labs, Prior outpatient radiology, Primary care record and Outside ED record Tests considered The following testing was considered but not selected: As above Prescription Management I considered prescription management with: Pain Medication and Antibiotic Discharge Plan Discharge Clinical Impression: Dog bite Patient Disposition: Home, Self-Care Instructions: Animal Bite (ED) Additional Instructions: Keep bite area dry and clean Take oral Augmentin as prescribed until completion You may apply topical bacitracin/triple antibiotic ointment Very begins to look worse, increasingly swollen, red, there is pus drainage or you have fever return to the ED immediately Follow-up with her doctor. Your tetanus was updated today Prescriptions: New amoxicillin-pot clavulanate 875-125 mg tablet 1 tab PO BID 7 Days Qty: 14 0RF bacitracin 500 unit/gram ointment 1 appl topical BID Qty: 30 0RF No Action clonazepam 0.5 mg Tablet 0.5 mg PO QID 30 Days Qty: 120 0RF paroxetine HCl 20 mg Tablet 20 mg PO DAILY 30 Days Qty: 30 0RF mirtazapine 7.5 mg Tablet 7.5 mg PO BEDTIME 30 Days Qty: 30 0RF cefuroxime axetil 250 mg tablet 250 mg PO BID Qty: 12 0RF fluconazole 150 mg tablet 150 mg PO Q3D Qty: 2 0RF Rx Instructions: may repeat second dose 72 hrs after first dose if symptoms persist nitrofurantoin monohyd/m-cryst [Macrobid] 100 mg capsule 100 mg PO Q12H 7 Days Qty: 14 0RF Rx Instructions: must administer with a meal/food Referrals: Physician,Kathy J [Primary Care Provider] - 5 days Interventions: ED Discharge Assessment Last Done: 06/12/24 07:59 Discharge Date/Time: 06/12/24 07:59 Print Language: Citizen Of [place]
[2024-06-12] MEDS: Amoxicillin/Potassium Clav 875 MG TABLET PO (07:43)
[2024-06-12] MEDS: Diphth,Pertus(ACell),Tet Adult 0.5 ML SYRINGE IM (07:43)
[2024-06-12 07:59] VITALS: BP 139/75; PULSE 84; RESP 16; TEMP 36.4; O2SAT 98
== END 2024-06-12 07:59 | disposition home or self-care (01) ==
PROVIDERS: Emergency Provider Emergency Medicine Emergency Medical Services
DX: S81.852A Open bite, left lower leg, initial encounter (principal); M79.605 Pain in left leg; W54.0XXA Bitten by dog, initial encounter; Y93.89 Activity, other specified; Y92.89 Other specified places as the place of occurrence of the external cause; Y99.8 Other external cause status; Z23 Encounter for immunization
CPT/HCPCS: 90471; 90715; 99282; 99284

== ENCOUNTER 2024-06-20 11:14 | Emergency (ER) | payer OTHER, SELFPAY ==
[2024-06-20 11:17] VITALS: BP 98/71; PULSE 100; O2SAT 100
[2024-06-20 11:27] VITALS: BMI 64.6
[2024-06-20 11:32] VITALS: BP 120/76; PULSE 104; RESP 18; TEMP 36.9; O2SAT 98
[2024-06-20 11:58] VITALS: BP 98/71; PULSE 100; RESP 18; O2SAT 100; BMI 29.3
--- NOTE | 2024-06-20 11:59 | ED.ANIMALBIT ---
HPI - Animal Bite General Chief Complaint: Animal Bite Stated Complaint: DOG BITE ON HAND Time Seen by Provider: 06/20/24 11:17 Source: patient Mode of arrival: ambulatory Limitations: no limitations History of Present Illness ED Provider: Niya Alex APRN HPI narrative: 24 yo female healthy seen here 06/12 for a dog bite that occurred on June 11 by one of her own dogs on her left calf. She was provided a tetanus shot that day. Rabies series was not indicated. She was given a 7 day course of Augmentin which she completed yesterday. She reports continued pain at the site as well as some local swelling than she is concerned that she may have an infection. No fevers, chills, drainage from the site, weakness, numbness, tingling of the extremities. Related Data Previous Rx's ?Medication ?Instructions ?Recorded clonazepam 0.5 mg tablet 0.5 mg PO QID 30 days #120 tabs 09/05/21 mirtazapine 7.5 mg tablet 7.5 mg PO BEDTIME 30 days #30 tabs 09/05/21 paroxetine HCl 20 mg tablet 20 mg PO DAILY 30 days #30 tabs 09/05/21 cefuroxime axetil 250 mg tablet 250 mg PO BID #12 tabs 05/06/24 fluconazole 150 mg tablet 150 mg PO Q3D 2 doses #2 tabs 05/08/24 nitrofurantoin 100 mg PO Q12H 7 days #14 caps 05/08/24 monohydrate/macrocrystals 100 mg capsule (Macrobid) amoxicillin 875 mg-potassium 1 tab PO BID 7 days #14 tabs 06/12/24 clavulanate 125 mg tablet bacitracin 500 unit/gram topical 1 appl topical BID #30 grams 06/12/24 ointment amoxicillin 875 mg-potassium 1 tab PO BID #14 tabs 06/20/24 clavulanate 125 mg tablet ibuprofen 600 mg tablet 600 mg PO Q8H PRN pain #30 tabs 06/20/24 Allergies Allergy/AdvReac Type Severity Reaction Status Date / Time gluten Allergy Intermediate Diarrhea Verified 06/20/24 12:01 Review of Systems Review of Systems: Yes all other systems are reviewed and are negative Constitutional: Constitutional: Reports no additional constitutional complaints, Denies body ache(s), Denies chills, Denies fever(s), Denies headache(s) and Denies weakness Eyes: Eyes: Reports no additional eye complaints and Denies change in vision ENT: Reports system reviewed and no additional complaints, except as documented, Denies dizziness, Denies headache(s), Denies nasal congestion, Denies nasal discharge and Denies neck pain Cardiovascular: Cardiovascular: Reports no additional cardiovascular complaints, Denies chest pain, Denies leg edema and Denies dyspnea Respiratory: Respiratory: Reports no additional respiratory complaints, Denies cough and Denies dyspnea Gastrointestinal: Gastrointestinal: Reports no additional gastrointestinal complaints, Denies abdominal pain, Denies diarrhea, Denies nausea and Denies vomiting Genitourinary: Genitourinary: Reports no additional female genitourinary complaints and Denies urinary incontinence Musculoskeletal: Musculoskeletal: Reports no additional musculoskeletal complaints, Denies back pain, Denies arthralgias, Denies joint swelling, Denies neck pain, Denies numbness and Denies tingling Integumentary/Breasts: Skin/Breast: Reports system reviewed and no additional complaints, except as docu, Reports swelling, Denies erythema, Denies rash and Reports wounds Neurologic: Reports system reviewed and no additional complaints, except as documented, Denies Abnormal speech present, Denies dizziness, Denies headache(s), Denies numbness, Denies tingling and Denies weakness PMFSH Past Medical History Attestation statement: The following information was validated with the patient. Source: old records reviewed and nursing notes reviewed Medical History Marijuana abuse Cocaine abuse Benzodiazepine abuse Social History Social History Household Members: Family Housing: Apartment Do you presently have visiting nurse or other home services: No Patient Tobacco Use Status: Never used Tobacco Substance Use Type: Prescription Drugs Advance Directives: No Advance Directives Information Provided: No service: No Sexual orientation: Don't Know Physical Exam ED Vital Signs: Vital Signs - 24 hr 06/20/24 11:32 06/20/24 11:58 06/20/24 12:42 Temperature 98.4 F 98.7 F Pulse Rate 104 H 100 100 Respiratory Rate 18 18 18 Blood Pressure 120/76 98/71 98/71 Pulse Oximetry 98 100 100 Oxygen Delivery Method Room Air Room Air Room Air BMI result Body Mass Index 29.3 Const General: cooperative, healthy appearing, comfortable and no acute distress Orientation/consciousness: patient oriented x3 Limitations: no limitations HENMT Head: Yes normal to inspection Ears: hearing grossly normal bilaterally General nose exam: Normal external nose present Face and sinus: Yes normal facial exam Mouth: Normal oral and palatal mucosa present Throat: Yes posterior oropharynx normal Eyes General: appearance normal, both eyes and all related structures Pupils: Equal, round and reactive pupils present Neck Neck: Yes normal visual inspection Chest Chest palpation & inspection: normal inspection of the chest Resp Effort & Inspection: normal respiratory effort Auscultation: clear to auscultation bilaterally Cardio Rate: regular rate Rhythm: regular rhythm Peripheral pulses: Peripheral pulses 2+ throughout GI Inspection: Yes normal to inspection Palpation (GI): Soft to palpation and nontender Auscultation: normal bowel sounds Back/Spine/Pelvis Thoracic/Lumbar Spine: thoracic and lumbar spine normal to inspection Skin General skin exam: no rashes or lesions noted Neuro General: patient oriented x3, no focal motor deficits and normal sensation to monofilament Cranial nerves: Yes Equal, round and reactive pupils present Cognition (Neuro): normal cognition Speech: No Abnormal speech present Gait exam (Neuro): Normal gait present Motor exam (neuro): 5/5 motor strength present throughout Extrem Other: To the left posterior calf there is a small puncture site noted which seems to be healing. There is some local ecchymosis. There is some mild swelling around the puncture site but this area is firm. There is no palpable fluctuance. There is no drainage from the site. There is no surrounding redness Medical Decision Making Medical Decision Making MDM Narrative: 24-year-old female here with continued pain and swelling to her left calf after a dog bite which occurred on June 11. She did complete a course of antibiotics but still feels that there is some pain and swelling of the site. To the left posterior calf there is a small puncture site noted which seems to be healing. There is some local ecchymosis. There is some mild swelling around the puncture site but this area is firm. There is no palpable fluctuance. There is no drainage from the site. There is no surrounding redness. Recommend warm compresses, course of antibiotics Differential Diagnosis Differential Diagnoses: The differential diagnosis associated with the presentation includes Infection, low suspicion for abscess or deeper space infection or compartment syndrome Admission/Observation Consideration of admission/observation: Escalation of care including admission/observation considered Independent Historian Clinical information obtained from an independent historian. History obtained from or confirmed by: Friend Tests considered The following testing was considered but not selected: Low suspicion for deeper space infection requiring advanced imaging Prescription Management I considered prescription management with: Antibiotic Discharge Plan Discharge Clinical Impression: Dog bite Patient Disposition: Home, Self-Care Instructions: Animal Bite (ED) Additional Instructions: Warm compresses four times daily Take ibuprofen for pain as needed Apply a topical antibiotic ointment and keep the area clean, covered and dry Prescriptions: New amoxicillin-pot clavulanate 875-125 mg tablet 1 tab PO BID Qty: 14 0RF ibuprofen 600 mg tablet 600 mg PO Q8H PRN (Reason: pain) Qty: 30 0RF No Action clonazepam 0.5 mg Tablet 0.5 mg PO QID 30 Days Qty: 120 0RF paroxetine HCl 20 mg Tablet 20 mg PO DAILY 30 Days Qty: 30 0RF mirtazapine 7.5 mg Tablet 7.5 mg PO BEDTIME 30 Days Qty: 30 0RF cefuroxime axetil 250 mg tablet 250 mg PO BID Qty: 12 0RF fluconazole 150 mg tablet 150 mg PO Q3D Qty: 2 0RF Rx Instructions: may repeat second dose 72 hrs after first dose if symptoms persist nitrofurantoin monohyd/m-cryst [Macrobid] 100 mg capsule 100 mg PO Q12H 7 Days Qty: 14 0RF Rx Instructions: must administer with a meal/food amoxicillin-pot clavulanate 875-125 mg tablet 1 tab PO BID 7 Days Qty: 14 0RF bacitracin 500 unit/gram ointment 1 appl topical BID Qty: 30 0RF Interventions: ED Discharge Assessment Last Done: 06/20/24 12:42 Discharge Date/Time: 06/20/24 12:43 Print Language: [place]
[2024-06-20 12:42] VITALS: BP 98/71; PULSE 100; RESP 18; TEMP 37.1; O2SAT 100
== END 2024-06-20 12:43 | disposition home or self-care (01) ==
PROVIDERS: Emergency Provider Emergency Medicine
DX: S81.852A Open bite, left lower leg, initial encounter (principal); W54.0XXA Bitten by dog, initial encounter; Y93.9 Activity, unspecified; Y92.9 Unspecified place or not applicable; Y99.9 Unspecified external cause status
CPT/HCPCS: 99282; 99283

== ENCOUNTER 2024-07-17 20:09 | Emergency (ER) | payer OTHER, SELFPAY ==
--- NOTE | ~2024-07-17 | CT_ITS ---
EXAMINATION: CT HEAD WITHOUT CONTRAST CLINICAL INFORMATION: Fall. Head strike. COMPARISON: None available. TECHNIQUE: Contiguous axial imaging was performed from the skull base to vertex without intravenous administration of contrast. This CT examination was performed using dose optimization techniques as appropriate, variously including the following: *Automated exposure control *Adjustment of mA and/or kV according to patient size (this includes techniques or standardized protocols for targeted exams where dose is matched to indication/reason for exam; i.e. extremities or head) *Use of iterative reconstruction technique DLP: 1220 mGy-cm FINDINGS: No acute intracranial hemorrhage. No evidence of acute/subacute infarct. There is no midline shift or mass effect. There is no extra-axial fluid collection. The ventricles are normal in size. The orbits are symmetric and within normal limits. The calvarium is intact. Visualized paranasal sinuses and mastoid air cells are clear. CT/CT head/brain wo IV con IMPRESSION: No acute intracranial pathology. Electronically signed by: Toro Navas DO 07/17/2024 10:10 PM L[facility] PERALTA
--- NOTE | ~2024-07-17 | CT_ITS ---
EXAMINATION: CT ABDOMEN AND PELVIS WITHOUT CONTRAST CLINICAL INFORMATION: Fall. Abdominal pain. Hematuria. COMPARISON: May 06, 2024 TECHNIQUE: Multidetector volumetric imaging was performed from the superior aspect of the liver through the pubic symphysis. Sagittal and coronal reformatted images were obtained on the technologist's workstation. This CT examination was performed using dose optimization techniques as appropriate, variously including the following: *Automated exposure control *Adjustment of mA and/or kV according to patient size (this includes techniques or standardized protocols for targeted exams where dose is matched to indication/reason for exam; i.e. extremities or head) *Use of iterative reconstruction technique DLP: 1220 mGy-cm FINDINGS: LUNG BASES: There is a 2 mm nonspecific nodule at the left lung base. LIVER, GALLBLADDER, AND BILIARY TREE: The liver is normal in size, shape, and attenuation. No focal hepatic lesion or biliary ductal dilatation is present. Gallstones are noted within a nondistended gallbladder. PANCREAS: Unremarkable. SPLEEN: Unremarkable. ADRENAL GLANDS: Unremarkable. KIDNEYS AND URETERS: The kidneys are normal in size, shape, and attenuation. No hydronephrosis, hydroureter, or calculi seen. No perinephric stranding. BLADDER: Unremarkable. GASTROINTESTINAL TRACT: The small and large bowel are unremarkable. The appendix is unremarkable. ABDOMINAL WALL: No significant hernia is appreciated. LYMPH NODES: Normal. VASCULAR: Unremarkable. PELVIC VISCERA: Unremarkable. OSSEOUS STRUCTURES: There is mild lower lumbar degenerative change. CT/CT abdomen pelvis wo IV con IMPRESSION: 1. No acute abnormality in the abdomen or pelvis. 2. Cholelithiasis. Fleischner guidelines were followed. Electronically signed by: Jong Lombardi MD 07/17/2024 11:29 PM LISA
[2024-07-17 20:14] VITALS: BP 130/88; PULSE 89; O2SAT 99
[2024-07-17 20:17] VITALS: BP 141/76; PULSE 109; RESP 20; TEMP 37.1; O2SAT 97; BMI 28.8
--- NOTE | 2024-07-17 20:22 | ED_ITS ---
HPI - General Adult General Chief complaint: Back Pain/Injury Stated complaint: BACK PN APPROX 4 DAYS, FALL, HEAD INJURY. PER EMS Time Seen by Provider: 07/17/24 23:14 Source: patient Mode of arrival: ambulatory Limitations: no limitations History of Present Illness ED Provider: HPI narrative: Patient is complaining of pain in the right lower for last few days does have a celiac disease also patient fell few days ago without significant head injury does have history of gallstones noticed some blood in the urine no dysuria Related Data Previous Rx's ?Medication ?Instructions ?Recorded clonazepam 0.5 mg tablet 0.5 mg PO QID 30 days #120 tabs 09/05/21 mirtazapine 7.5 mg tablet 7.5 mg PO BEDTIME 30 days #30 tabs 09/05/21 paroxetine HCl 20 mg tablet 20 mg PO DAILY 30 days #30 tabs 09/05/21 cefuroxime axetil 250 mg tablet 250 mg PO BID #12 tabs 05/06/24 fluconazole 150 mg tablet 150 mg PO Q3D 2 doses #2 tabs 05/08/24 nitrofurantoin 100 mg PO Q12H 7 days #14 caps 05/08/24 monohydrate/macrocrystals 100 mg capsule (Macrobid) amoxicillin 875 mg-potassium 1 tab PO BID 7 days #14 tabs 06/12/24 clavulanate 125 mg tablet bacitracin 500 unit/gram topical 1 appl topical BID #30 grams 06/12/24 ointment amoxicillin 875 mg-potassium 1 tab PO BID #14 tabs 06/20/24 clavulanate 125 mg tablet ibuprofen 600 mg tablet 600 mg PO Q8H PRN pain #30 tabs 06/20/24 prednisone 20 mg tablet 40 mg (2 x 20 mg) PO DAILY #10 tabs 07/18/24 tramadol 50 mg tablet 50 mg PO Q8-10H PRN pain #15 tabs 07/18/24 Allergies Allergy/AdvReac Type Severity Reaction Status Date / Time gluten Allergy Intermediate Diarrhea Verified 07/17/24 20:22 Review of Systems 2 Review of Systems: Yes all other systems are reviewed and are negative PMFSH Past Medical History Medical History Marijuana abuse Cocaine abuse Benzodiazepine abuse Social History Social History Household Members: Family Housing: Apartment Do you presently have visiting nurse or other home services: No Patient Tobacco Use Status: Never used Tobacco Smoked in Last 30 Days: No Use of substances other than those prescribed or required for medical reasons: Yes Substance Use Type: Prescription Drugs Advance Directives: No Advance Directives Information Provided: No Do you have a plan to hurt others: No Plan Patient : No service: No Sexual orientation: Don't Know Physical Exam ED Vital Signs: Vital Signs - 24 hr 07/17/24 20:17 07/17/24 22:50 07/18/24 00:06 Temperature 98.7 F 98.3 F 97.6 F Pulse Rate 109 H 82 96 Respiratory Rate 20 18 18 Blood Pressure 141/76 H 113/80 127/78 Pulse Oximetry 97 98 98 Oxygen Delivery Method Room Air Room Air Room Air 07/18/24 00:19 Temperature 97.6 F Pulse Rate 96 Respiratory Rate 18 Blood Pressure 127/78 Pulse Oximetry 98 Oxygen Delivery Method Room Air BMI result Body Mass Index 28.8 Appearance: Alert. Oriented X3. No acute distress. Eyes: PERRLA, No Nystagmus ENT: Pharynx normal. Oral Mucosa moist Neck: Normal inspection. Neck supple. CVS: Normal heart rate and rhythm. Pulses normal. Respiratory: No respiratory distress. Equal air entry bilateral, no wheezing/rales/rhonchi Abdomen: Soft and nontender. Bowel sounds are present, no mass palpable, no CVA tenderness Skin: Skin warm and dry. Normal skin color. Normal skin turgor. Extremities: No lower extremity edema. No calf tenderness back: Tenderness in right sacroiliac joint no midline tenderness Neuro: Oriented X 3. No motor deficit. No sensory deficit.No cerebellar signs , cranial nerves II-XII intact Course Course Course Narrative: This is an RME done by PIERRE Massey: Additional HPI, ROS, PE not included below will be deferred to primary provider. [age] [place] old female hx agoraphobia, ptsd, anxiety, celliac disease presents with bilateral back pain, groin pain, blood in urine ongoing for the past 4 days. Patient had severe back pain, went to the bathroom, fell due to severe back pain had numbness in legs however, sensation came back. When she fell, did hit head. No loss of consciousness. Not on blood thinners for med review. hx of kidney stones Medications Administered Discontinued Medications Generic Name Dose Route Start Last Admin Trade Name Lucina PRN Reason Stop Dose Admin Dexamethasone 10 mg 07/17/24 23:31 07/17/24 23:48 Dexamethasone 2 Mg Tablet PO 07/17/24 23:32 10 mg ONCE ONE Administration Tramadol HCl 50 mg 07/17/24 23:31 07/17/24 23:48 Tramadol Hcl 50 Mg Tablet PO 07/17/24 23:32 50 mg ONCE ONE Administration Medical Decision Making Medical Decision Making [facility] Narrative: Patient clinically with sacroiliitis of the right side will prescribe prednisone tramadol advised to follow with PCP/further manage patient is a CT scan of the abdomen 2nd time which was also negative just showing gallstones head CT was also negative Lab Data [facility] Lab Attestation statement: I reviewed the patient's lab results. 07/17/24 20:33 07/17/24 20:33 Labs: Lab Results 07/17/24 Range/Units 20:33 WBC 5.0 (4.8-10.8) X10*3/uL RBC 4.52 (4.20-5.50) X10*6/uL Hgb 11.7 L (12.0-16.0) g/dl Hct 35.5 L (37.0-47.0) % MCV 78.5 L (80.0-98.0) fL MCH 25.9 L (27.0-33.0) pg MCHC 33.0 (31.0-35.0) g/dl RDW 16.6 H (11.0-16.0) % Plt Count 348 (160-400) X10*3/uL MPV 8.6 L (9.4-12.3) fL Immature Gran % (Auto) 0.2 (0.0-0.4) % Neut % (Auto) 47.2 (45-73) % Lymph % (Auto) 38.0 (20-40) % [place] % (Auto) 11.6 H (2-11) % Eos % (Auto) 2.6 (0-4) % Baso % (Auto) 0.4 (0-2) % Lymph # (Auto) 1.9 (1.2-4.9) X10*3/uL [place] # (Auto) 0.6 (0.1-1.2) X10*3/uL Eos # (Auto) 0.1 (0.0-0.4) X10*3/uL Baso # (Auto) 0.0 (0.0-0.2) X10*3/uL Abs Immat Gran (auto) 0.01 (0.00-0.03) X10*3/uL Absolute Neuts (auto) 2.4 (2.0-8.3) x10*3/uL Absolute Nucleated RBC 0.000 (0.0-0.012) X10*3/uL Nucleated RBC % (auto) 0.0 (0.0-0.2) /100WBC Sodium 141 (135-145) mmol/L Potassium 3.9 (3.3-5.1) mmol/L Chloride 110 H (96-108) mmol/L Carbon Dioxide 23 (22-29) mmol/L Anion Gap 12 (12-20) BUN 13 (9-16) mg/dL Creatinine 0.85 (0.5-1.4) mg/dL Estim Creat Clear Calc 114.3 Estimated GFR > 60 Random Glucose 100 (60-115) mg/dL Calcium 9.0 (8.4-10.2) mg/dL Magnesium 1.9 (1.6-2.6) mg/dL Total Bilirubin 0.2 (0.0-1.0) mg/dL AST 23 (5-31) U/L ALT 21 (0-31) U/L Alkaline Phosphatase 46 (39-117) U/L Total Protein 7.3 (6.5-8.0) g/dL Albumin 4.4 (3.5-5.0) g/dL Lipase 13 (8-78) U/L Beta HCG, Quant < 2 mIU/mL Independent Interpretation I performed an independent interpretation of an: CT Scan Radiology Impression Discussion of test interpretation with radiology: I have reviewed the radiologist's reading. Discharge Plan Discharge Clinical Impression: Sacroiliitis Patient Disposition: Home, Self-Care Instructions: Sacroiliitis (ED) Additional Instructions: Take pain medication and prednisone as prescribed Follow with your PCP/pain clinic Prescriptions: New prednisone 20 mg tablet 40 mg PO DAILY Qty: 10 0RF tramadol 50 mg tablet 50 mg PO Q8-10H PRN (Reason: pain) Qty: 15 0RF No Action clonazepam 0.5 mg Tablet 0.5 mg PO QID 30 Days Qty: 120 0RF paroxetine HCl 20 mg Tablet 20 mg PO DAILY 30 Days Qty: 30 0RF mirtazapine 7.5 mg Tablet 7.5 mg PO BEDTIME 30 Days Qty: 30 0RF cefuroxime axetil 250 mg tablet 250 mg PO BID Qty: 12 0RF fluconazole 150 mg tablet 150 mg PO Q3D Qty: 2 0RF Rx Instructions: may repeat second dose 72 hrs after first dose if symptoms persist nitrofurantoin monohyd/m-cryst [Macrobid] 100 mg capsule 100 mg PO Q12H 7 Days Qty: 14 0RF Rx Instructions: must administer with a meal/food amoxicillin-pot clavulanate 875-125 mg tablet 1 tab PO BID 7 Days Qty: 14 0RF bacitracin 500 unit/gram ointment 1 appl topical BID Qty: 30 0RF amoxicillin-pot clavulanate 875-125 mg tablet 1 tab PO BID Qty: 14 0RF ibuprofen 600 mg tablet 600 mg PO Q8H PRN (Reason: pain) Qty: 30 0RF Referrals: Chemo Hanley MD [Physician] - Interventions: ED Discharge Assessment Last Done: 07/18/24 00:19 Discharge Date/Time: 07/18/24 00:20 Print Language: Icelandic
[2024-07-17 20:40] LABS: MANUAL DIFF FLAG NO
[2024-07-17 20:42] LABS: Basophils Percent Auto 0.4 % (0-2); Eosinophils Absolute Auto 0.1 X10*3/uL (0.0-0.4); Eosinophils Percent Auto 2.6 % (0-4); Hematocrit 35.5 % (37.0-47.0); Hemoglobin 11.7 g/dl (12.0-16.0); Imm Gran Abs Auto 0.01 X10*3/uL (0.00-0.03); Imm Gran Pct Auto 0.2 % (0.0-0.4); Lymphocytes Absolute Auto 1.9 X10*3/uL (1.2-4.9); Mean Corpuscular Hemoglobin 25.9 pg (27.0-33.0); Mean Corpuscular Volume 78.5 fL (80.0-98.0); Mean Platelet Volume 8.6 fL (9.4-12.3); Monocytes Absolute Auto 0.6 X10*3/uL (0.1-1.2); Monocytes Percent Auto 11.6 % (2-11); Neutrophils Absolute Auto 2.4 x10*3/uL (2.0-8.3); Neutrophils Percent Auto 47.2 % (45-73); Platelet Count 348 X10*3/uL (160-400); Red Blood Count 4.52 X10*6/uL (4.20-5.50); Red Cell Distribution Width 16.6 % (11.0-16.0)
[2024-07-17 21:05] LABS: Alanine Aminotransferase 21 U/L (0-31); Albumin Level 4.4 g/dL (3.5-5.0); Alkaline Phosphatase 46 U/L (39-117); Anion Gap 12 (12-20); Aspartate Amino Transferase 23 U/L (5-31); Bilirubin Total 0.2 mg/dL (0.0-1.0); Blood Urea Nitrogen 13 mg/dL (9-16); Carbon Dioxide 23 mmol/L (22-29); Chloride 110 mmol/L (96-108); Creatinine Clr Calc Pharmacy 114.3; Estimated Glomerular Filt Rate > 60; Glucose Random 100 mg/dL (60-115); Lipase 13 U/L (8-78); Magnesium 1.9 mg/dL (1.6-2.6); Potassium 3.9 mmol/L (3.3-5.1); Sodium 141 mmol/L (135-145); Total Protein 7.3 g/dL (6.5-8.0)
[2024-07-17 21:06] LABS: HCG Quantitative < 2 mIU/mL
[2024-07-17 22:50] VITALS: BP 113/80; PULSE 82; RESP 18; TEMP 36.8; O2SAT 98
--- NOTE | 2024-07-17 23:23 | PC.NURSE ---
this rn assumed care of pt, pt a&ox4, respirations even and unlabored. pt reports x4 days they have been unable to ambulate with numbness to the lower extremities. pt not able to ambulate at this time and has been using a wheelchair to get around. cms in tact.
[2024-07-17] MEDS: dexAMETHasone 2 MG TABLET 10 MG PO (23:48)
[2024-07-17] MEDS: traMADoL HCL 50 MG TABLET PO (23:48)
--- NOTE | 2024-07-17 23:53 | PC.NURSE ---
pt medicated per mar, tolerated well with water.
[2024-07-18 00:06] VITALS: BP 127/78; PULSE 96; RESP 18; TEMP 36.4; O2SAT 98
[2024-07-18 00:19] VITALS: BP 127/78; PULSE 96; RESP 18; TEMP 36.4; O2SAT 98
== END 2024-07-18 00:20 | disposition home or self-care (01) ==
PROVIDERS: Physician Assistant; Emergency Provider Internal Medicine
DX: M46.1 Sacroiliitis, not elsewhere classified (principal); R10.31 Right lower quadrant pain; K90.0 Celiac disease
CPT/HCPCS: 36415; 70450; 74176; 80053; 83690; 83735; 84702; 85025; 99284; J8540

== ENCOUNTER 2024-12-17 00:57 | Emergency (ER) | payer MEDICAID, SELFPAY ==
[2024-12-17 01:01] VITALS: BP 114/78; BP 117/67; PULSE 100; PULSE 87; RESP 16; TEMP 36.6; O2SAT 98; O2SAT 99; BMI 28.4
--- NOTE | 2024-12-17 01:16 | PC.NURSE ---
pt biba from home, a&ox4, respirations even and unlabored. pt reports lower right back pain radiating into right leg x1.5 months. pt is minimally ambulatory at this time. denies any urinary symptoms. pt taken to bathroom in wheelchair and given urine cup for sample.
--- NOTE | 2024-12-17 01:45 | ED_ITS ---
HPI - General Adult General Chief complaint: Back Pain/Injury Stated complaint: Lower R back pain w/ R leg pain 1.5 months Time Seen by Provider: 12/17/24 01:26 Source: patient, RN notes reviewed and old records reviewed Mode of arrival: EMS Limitations: no limitations History of Present Illness ED Provider: Elda HPI narrative: 24-year-old female with past medical history significant for anxiety, PTSD, agoraphobia presents for evaluation of back pain. patient reports that she has had mostly right-sided lower back pain for about a month and a half. She denies any specific injury she reports that she is disabled due to agoraphobia and does not work she spends her day cleaning in the house or sitting around not doing much denies any recent falls, heavy lifting or twisting injuries. She reports that her symptoms are better when she lays on her left side your symptoms are worse when trying to get up and walk. She does not feel as though she can stand straight up her pain radiates down her right leg and she feels occasional numbness to the area the going to the bathroom, no bladder or bowel incontinence she reports going to [facility] about a month ago and they told me I had sciatica but did not do anything. the patient is requesting an MRI or a CAT scan of her back. the patient was seen here in July and diagnosed with sacroiliitis she was ultimately discharged with prednisone and tramadol she reports that she never took the prednisone and believes the tramadol did help somewhat Related Data Previous Rx's ?Medication ?Instructions ?Recorded clonazepam 0.5 mg tablet 0.5 mg PO QID 30 days #120 tabs 09/05/21 mirtazapine 7.5 mg tablet 7.5 mg PO BEDTIME 30 days #30 tabs 09/05/21 paroxetine HCl 20 mg tablet 20 mg PO DAILY 30 days #30 tabs 09/05/21 cefuroxime axetil 250 mg tablet 250 mg PO BID #12 tabs 05/06/24 fluconazole 150 mg tablet 150 mg PO Q3D 2 doses #2 tabs 05/08/24 nitrofurantoin 100 mg PO Q12H 7 days #14 caps 05/08/24 monohydrate/macrocrystals 100 mg capsule (Macrobid) amoxicillin 875 mg-potassium 1 tab PO BID 7 days #14 tabs 06/12/24 clavulanate 125 mg tablet bacitracin 500 unit/gram topical 1 appl topical BID #30 grams 06/12/24 ointment amoxicillin 875 mg-potassium 1 tab PO BID #14 tabs 06/20/24 clavulanate 125 mg tablet ibuprofen 600 mg tablet 600 mg PO Q8H PRN pain #30 tabs 06/20/24 prednisone 20 mg tablet 40 mg (2 x 20 mg) PO DAILY #10 tabs 07/18/24 tramadol 50 mg tablet 50 mg PO Q8-10H PRN pain #15 tabs 07/18/24 acetaminophen 500 mg capsule 1,000 mg (2 x 500 mg) PO Q8H PRN 12/17/24 fever or pain #14 caps cyclobenzaprine 10 mg tablet 10 mg PO TID PRN back pain #14 tabs 12/17/24 Allergies Allergy/AdvReac Type Severity Reaction Status Date / Time gluten Allergy Intermediate Diarrhea Verified 12/17/24 01:06 Review of Systems Constitutional: Constitutional: Denies body ache(s), Denies chills, Denies fever(s) and Denies headache(s) Eyes: Eyes: Denies blurry vision ENT: Denies vertigo, Denies dizziness and Denies headache(s) Cardiovascular: Cardiovascular: Denies chest pain Respiratory: Respiratory: Denies cough Gastrointestinal: Gastrointestinal: Denies abdominal pain Genitourinary: Genitourinary: Denies hematuria, Denies dysuria and Denies urinary incontinence Musculoskeletal: Musculoskeletal: Reports back pain, Reports numbness and Reports radiating pain into limb Integumentary/Breasts: Skin/Breast: Denies rash Neurologic: Denies vertigo, Denies dizziness, Denies headache(s) and Reports numbness Psychiatric: Psychiatric: Reports anxiety, Reports panic attacks and Denies suicidal ideation [facility] Past Medical History Medical History Marijuana abuse Cocaine abuse Benzodiazepine abuse Social History Social History Household Members: Family Housing: Apartment Do you presently have visiting nurse or other home services: No Patient Tobacco Use Status: Never used Tobacco Smoked in Last 30 Days: No Use of substances other than those prescribed or required for medical reasons: No Substance Use Type: Prescription Drugs Advance Directives: No Do you have a plan to hurt others: No Plan Patient : No service: No Sexual orientation: Don't Know Physical Exam ED Vital Signs: Vital Signs - 24 hr 12/17/24 01:01 12/17/24 03:01 Temperature 97.8 F 97.8 F Pulse Rate 87 87 Respiratory Rate 16 16 Blood Pressure 117/67 117/67 Pulse Oximetry 98 98 Oxygen Delivery Method Room Air Room Air BMI result Body Mass Index 28.4 Const General: healthy appearing, comfortable, no acute distress, alert and awake Nutritional Appearance: well nourished Orientation/consciousness: patient oriented x3 HENMT Head: Yes normocephalic and Yes atraumatic Eyes Eyelids: Yes eyelids normal Conjunctivae: conjunctivae normal Sclerae: sclerae normal Corneas: corneas normal Pupils: Equal, round and reactive pupils present EOM: EOMs intact bilaterally Neck Neck: Yes full ROM Resp Effort & Inspection: normal respiratory effort, able to speak in complete sentences and not labored GI Inspection: No distended Back/Spine/Pelvis Other: patient has minimal tenderness to the lumbar vertebrae, no step-offs or deformities. There was no tenderness to the left lumbar paraspinous region. There is tenderness to the right lumbar paraspinous region. straight leg raise positive on the right. Skin General skin exam: elasticity normal Neuro Other: Strength to the bilateral lower extremity major muscle groups 5/5 General: patient oriented x3 Cranial nerves: Yes Equal, round and reactive pupils present and Yes Bilaterally intact EOM present Cognition (Neuro): normal cognition Deep tendon reflexes (DTR's): Right patellar reflex intensity grade: 2+ and Left patellar reflex intensity grade: 2+ Course Reevaluation(s) Reevaluation #1: Dr. [place]: The patient expressed a desire for another providers opinion. The patient is a 24-year-old female who was here for what sounds like subacute low back pain. She describes being seen at [facility] yesterday and was told she probably has sciatica. The patient apparently was going to be prescribed medications that might have includes steroids. I think the patient left the emergency room without completing treatment. The patient has been seen initially by the physician orthopaedic physician assistant here. The patient was felt to be neurologically intact and appropriate for outpatient management and was going to be prescribed prednisone and tramadol. The patient objected to this plan. I went to see the patient. The patient seems to have intact reflexes at the knees and ankles and toes go down bilaterally. The patient seems to have intact strength. I do not feel there are any red flags related to this complaint of back pain. No bowel or bladder control issues. No fevers. I spoke to the patient and her friend at some length explaining the need for outpatient follow up. The patient should follow up with her PCP at the [address] [place] [address] in [place] (a [facility]). She was also given the contact information for [facility] and support. The patient will be given a prescription for cyclobenzaprine that they may try as needed for pain. Time: 04:26 Medications Administered Discontinued Medications Generic Name Dose Route Start Last Admin Trade Name Lucina PRN Reason Stop Dose Admin Cyclobenzaprine HCl 10 mg 12/17/24 02:19 12/17/24 02:38 Cyclobenzaprine Hcl 10 Mg Tablet PO 12/17/24 02:20 10 mg ONCE ONE Administration Ketorolac Tromethamine 30 mg 12/17/24 02:19 12/17/24 02:40 Ketorolac Tromethamine 30 Mg/Ml Vial IM 12/17/24 02:20 30 mg ONCE ONE Administration Prednisone 40 mg 12/17/24 01:49 12/17/24 02:39 Prednisone 20 Mg Tablet PO 12/17/24 01:50 40 mg ONCE ONE Administration Tramadol HCl 50 mg 12/17/24 01:49 12/17/24 02:40 Tramadol Hcl 50 Mg Tablet PO 12/17/24 01:50 50 mg ONCE ONE Administration Medical Decision Making Medical Decision Making [facility] Narrative: 24-year-old female presents for evaluation of chronic low back pain for the last month and a half. She denies any specific injury. She reports pain radiating down her right leg. Her history is consistent with sciatica/ lumbar radiculopathy. Her physical exam is reassuring, she has no weakness, tell her tendons are intact and equal. The patient is intact. The patient is able to get up and ambulate independently without difficulty. There were no warning signs for cauda equina syndrome. I discussed that there was no indication for emergent MRI of the lumbar spine. A CT scan of the lumbar spine is not indicated either. I offered an x-ray lumbar spine which the patient declines because that will not show me anything. I offered to treat the patient with prednisone and tramadol which I recommended for her pain and to decrease inflammation. the patient became very upset stating that she can not see a primary doctor and will not go see them due to her agoraphobia. urinalysis was ordered which did not show any concerning findings. She has no history exam findings to suggest obstructive uropathy or pyelonephritis Differential Diagnosis Differential Diagnoses: The differential diagnosis associated with the presentation includes back pain Radiculopathy Sciatica Sacroiliitis Disc herniation Muscle spasm Obstructive uropathy UTI Lab Data Labs: Lab Results 12/17/24 Range/Units 01:41 Urine Color Yellow Urine Appearance Clear Urine pH 6.5 (5.0-9.0) Ur Specific [place] <= 1.005 (1.005-1.025) Urine Protein Negative (Neg-Trace) mg/dL Urine Glucose (UA) Negative (Negative) mg/dL Urine Ketones Negative (Negative) mg/dL Urine Blood Negative (Negative) Urine Nitrite Negative (Negative) Ur Leukocyte Esterase Negative (Negative) Urine RBC 0-2 (0-2) /HPF Urine WBC 0-5 (0-5) /HPF Ur Squamous Epith Cells 3-5 (0-2) /HPF Urine Bacteria Trace (None Seen) Hyaline Casts 0-2 (0-2) /LPF Tests considered The following testing was considered but not selected: considered lumbar spine x-ray and patient declined Prescription Management I considered prescription management with: Pain Medication Discharge Plan Discharge Clinical Impression: Back pain Patient Disposition: Home, Self-Care Instructions: Back Pain (ED) Additional Instructions: Prescriptions has been sent for acetaminophen ( Tylenol) and cyclobenzaprine (a muscle relaxant) to your pharmacy which you may use as needed for your back pain. Most importantly, you will need to follow up with your primary care doctor and possibly with a back specialist for ongoing evaluation and management of your symptoms. Therefore please contact your regular doctor's office in the morning to arrange a follow up appointment as soon as possible. You have also been given the contact information for [email or web address], a medical practice which specializes in care of back pain. I would recommending contacting them for a follow up appointment although you may need a referral from your primary care doctor. Prescriptions: New cyclobenzaprine 10 mg tablet 10 mg PO TID PRN (Reason: back pain) Qty: 14 0RF acetaminophen 500 mg capsule 1,000 mg PO Q8H PRN (Reason: fever or pain) Qty: 14 0RF No Action clonazepam 0.5 mg Tablet 0.5 mg PO QID 30 Days Qty: 120 0RF paroxetine HCl 20 mg Tablet 20 mg PO DAILY 30 Days Qty: 30 0RF mirtazapine 7.5 mg Tablet 7.5 mg PO BEDTIME 30 Days Qty: 30 0RF cefuroxime axetil 250 mg tablet 250 mg PO BID Qty: 12 0RF fluconazole 150 mg tablet 150 mg PO Q3D Qty: 2 0RF Rx Instructions: may repeat second dose 72 hrs after first dose if symptoms persist nitrofurantoin monohyd/m-cryst [Macrobid] 100 mg capsule 100 mg PO Q12H 7 Days Qty: 14 0RF Rx Instructions: must administer with a meal/food amoxicillin-pot clavulanate 875-125 mg tablet 1 tab PO BID 7 Days Qty: 14 0RF bacitracin 500 unit/gram ointment 1 appl topical BID Qty: 30 0RF amoxicillin-pot clavulanate 875-125 mg tablet 1 tab PO BID Qty: 14 0RF ibuprofen 600 mg tablet 600 mg PO Q8H PRN (Reason: pain) Qty: 30 0RF prednisone 20 mg tablet 40 mg PO DAILY Qty: 10 0RF tramadol 50 mg tablet 50 mg PO Q8-10H PRN (Reason: pain) Qty: 15 0RF Referrals: [facility] [Provider Group] (back pain/sciatica) Interventions: ED Discharge Assessment Last Done: 12/17/24 03:01 Discharge Date/Time: 12/17/24 03:02 Print Language: Monegasque
[2024-12-17 01:48] LABS: Appearance Urine Clear; Color Urine Yellow; Glucose Urine UA Negative (Negative); Leukocyte Esterase Urine Negative (Negative); Nitrite Urine Negative (Negative); PH 6.5 (5.0-9.0); Specific Gravity - Urine <= 1.005 (1.005-1.025); Urine Blood Negative (Negative); Urine Ketones Negative (Negative); Urine Protein Negative (Neg-Trace)
--- NOTE | 2024-12-17 01:48 | PC.NURSE ---
césar pa at bedside with pt, pt refusing medications offered by césar. pt stormed out of room angry and upset requesting to leave.
[2024-12-17 01:53] LABS: Bacteria Urine Trace (None Seen); Hyaline Casts Urine 0-2 /LPF (0-2); RBC Urine 0-2 /HPF (0-2); WBC Urine 0-5 /HPF (0-5)
--- NOTE | 2024-12-17 02:07 | PC.NURSE ---
pt requesting to speak to a second provider at this time. at bedside speaking with pt.
[2024-12-17] MEDS: Cyclobenzaprine HCl 10 MG TABLET PO (02:38)
[2024-12-17] MEDS: predniSONE 20 MG TABLET 40 MG PO (02:39)
[2024-12-17] MEDS: Ketorolac Tromethamine 30 MG/ML VIAL IM (02:40)
[2024-12-17] MEDS: traMADoL HCL 50 MG TABLET PO (02:40)
[2024-12-17 03:01] VITALS: BP 117/67; PULSE 87; RESP 16; TEMP 36.6; O2SAT 98
== END 2024-12-17 03:02 | disposition home or self-care (01) ==
PROVIDERS: Emergency Provider Emergency Medicine
DX: M54.50 Low back pain, unspecified (principal)
CPT/HCPCS: 81001; 96372; 99284; J1885

== ENCOUNTER 2024-12-21 03:44 | Emergency (ER) | payer MEDICAID, SELFPAY ==
[2024-12-21 03:50] VITALS: BP 136/82; PULSE 76; O2SAT 99
[2024-12-21 03:54] VITALS: BP 118/62; PULSE 82; RESP 20; TEMP 36.9; O2SAT 98; BMI 28.2
--- NOTE | 2024-12-21 04:22 | PC.NURSE ---
Pt comes from home with complaints of lower back pain x1 month. States pain is radiating down her back and making it difficult to walk. 10 pain. PT reports she was seen a few days ago and was given IM toradol that worked for 24 hours. PT stated cyclobenzaprine and Tylenol being ineffective. Would like to get toradol again
[2024-12-21] MEDS: Ketorolac Tromethamine 60 MG/2 ML VIAL IM (05:22)
--- NOTE | 2024-12-21 05:38 | ED.BACK ---
HPI - Back Pain/Injury General Chief Complaint: Back Pain/Injury Stated Complaint: BACK PAIN X1 MONTH Time Seen by Provider: 12/21/24 04:45 Source: patient Mode of arrival: ambulatory Limitations: no limitations History of Present Illness ED Provider: HPI Narrative: Patient complaining of right sciatic pain for last 1 month without any history of injury was seen here on 12/17 and prescribe Tylenol and Flexeril patient is still feel the pain radiating to the right leg no bladder or bowel involvement denies any trauma Related Data Previous Rx's ?Medication ?Instructions ?Recorded clonazepam 0.5 mg tablet 0.5 mg PO QID 30 days #120 tabs 09/05/21 mirtazapine 7.5 mg tablet 7.5 mg PO BEDTIME 30 days #30 tabs 09/05/21 paroxetine HCl 20 mg tablet 20 mg PO DAILY 30 days #30 tabs 09/05/21 cefuroxime axetil 250 mg tablet 250 mg PO BID #12 tabs 05/06/24 fluconazole 150 mg tablet 150 mg PO Q3D 2 doses #2 tabs 05/08/24 nitrofurantoin 100 mg PO Q12H 7 days #14 caps 05/08/24 monohydrate/macrocrystals 100 mg capsule (Macrobid) amoxicillin 875 mg-potassium 1 tab PO BID 7 days #14 tabs 06/12/24 clavulanate 125 mg tablet bacitracin 500 unit/gram topical 1 appl topical BID #30 grams 06/12/24 ointment amoxicillin 875 mg-potassium 1 tab PO BID #14 tabs 06/20/24 clavulanate 125 mg tablet ibuprofen 600 mg tablet 600 mg PO Q8H PRN pain #30 tabs 06/20/24 prednisone 20 mg tablet 40 mg (2 x 20 mg) PO DAILY #10 tabs 07/18/24 tramadol 50 mg tablet 50 mg PO Q8-10H PRN pain #15 tabs 07/18/24 acetaminophen 500 mg capsule 1,000 mg (2 x 500 mg) PO Q8H PRN 12/17/24 fever or pain #14 caps cyclobenzaprine 10 mg tablet 10 mg PO TID PRN back pain #14 tabs 12/17/24 ketorolac 10 mg tablet 10 mg PO Q8H 3 days #9 tabs 05/12/25 oxycodone 5 mg tablet 5 mg PO Q6H PRN pain #12 tabs 12/21/24 Allergies Allergy/AdvReac Type Severity Reaction Status Date / Time gluten Allergy Intermediate Diarrhea Verified 12/21/24 03:56 Review of Systems Review of Systems: Yes all other systems are reviewed and are negative [facility] Past Medical History Medical History Marijuana abuse Cocaine abuse Benzodiazepine abuse Social History Social History Household Members: Family Housing: Apartment Do you presently have visiting nurse or other home services: No Patient Tobacco Use Status: Never used Tobacco Smoked in Last 30 Days: No Use of substances other than those prescribed or required for medical reasons: Yes Substance Use Type: Marijuana Advance Directives: No Advance Directives Information Provided: No service: No Sexual orientation: Don't Know Physical Exam Vital Signs: Vital Signs: Last Vital Signs Temp 98.4 F 12/21/24 05:53 Pulse 82 12/21/24 05:53 Resp 20 12/21/24 05:53 BP 118/62 12/21/24 05:53 Pulse Ox 98 12/21/24 05:53 O2 Del Method Room Air 12/21/24 05:53 BMI result Body Mass Index 28.2 Appearance: Alert. Oriented X3. No acute distress. Eyes: PERRLA, No Nystagmus ENT: Pharynx normal. Oral Mucosa moist Neck: Normal inspection. Neck supple. CVS: Normal heart rate and rhythm. Pulses normal. Respiratory: No respiratory distress. Equal air entry bilateral, no wheezing/rales/rhonchi Abdomen: Soft and nontender. Bowel sounds are present, no mass palpable, no CVA tenderness Skin: Skin warm and dry. Normal skin color. Normal skin turgor. Extremities: No lower extremity edema. No calf tenderness Back: Diffuse lower lumbar tenderness right sciatic notch tenderness pace and wallet sign positive for piriformis syndrome Neuro: Oriented X 3. No motor deficit. No sensory deficit.No cerebellar signs , cranial nerves II-XII intact Medications Administered Discontinued Medications Generic Name Dose Route Start Last Admin Trade Name Freq PRN Reason Stop Dose Admin Ketorolac Tromethamine 60 mg 12/21/24 04:51 12/21/24 05:22 Ketorolac Tromethamine 60 Mg/2 Ml Vial IM 12/21/24 04:52 60 mg ONCE ONE Administration Medical Decision Making Medical Decision Making MDM Narrative: Patient clinically with right piriformis syndrome advised piriformis exercise was given pain medication and muscle relaxant to continue follow up with PCP Discharge Plan Discharge Clinical Impression: Piriformis syndrome of right side Patient Disposition: Home, Self-Care Instructions: Piriformis Syndrome (ED) Additional Instructions: Do the stretch exercises of piriformis muscle syndrome as advised Continue muscle relaxant and Tylenol Toradol for severe pain Follow up with your PCP Prescriptions: New ketorolac 10 mg tablet 10 mg PO Q8H 3 Days Qty: 9 0RF oxycodone 5 mg tablet 5 mg PO Q6H PRN (Reason: pain) Qty: 12 0RF Rx Instructions: Partial Fill upon patient request. No Action clonazepam 0.5 mg Tablet 0.5 mg PO QID 30 Days Qty: 120 0RF paroxetine HCl 20 mg Tablet 20 mg PO DAILY 30 Days Qty: 30 0RF mirtazapine 7.5 mg Tablet 7.5 mg PO BEDTIME 30 Days Qty: 30 0RF cyclobenzaprine 10 mg tablet 10 mg PO TID PRN (Reason: back pain) Qty: 14 0RF acetaminophen 500 mg capsule 1,000 mg PO Q8H PRN (Reason: fever or pain) Qty: 14 0RF cefuroxime axetil 250 mg tablet 250 mg PO BID Qty: 12 0RF fluconazole 150 mg tablet 150 mg PO Q3D Qty: 2 0RF Rx Instructions: may repeat second dose 72 hrs after first dose if symptoms persist nitrofurantoin monohyd/m-cryst [Macrobid] 100 mg capsule 100 mg PO Q12H 7 Days Qty: 14 0RF Rx Instructions: must administer with a meal/food amoxicillin-pot clavulanate 875-125 mg tablet 1 tab PO BID 7 Days Qty: 14 0RF bacitracin 500 unit/gram ointment 1 appl topical BID Qty: 30 0RF amoxicillin-pot clavulanate 875-125 mg tablet 1 tab PO BID Qty: 14 0RF ibuprofen 600 mg tablet 600 mg PO Q8H PRN (Reason: pain) Qty: 30 0RF prednisone 20 mg tablet 40 mg PO DAILY Qty: 10 0RF tramadol 50 mg tablet 50 mg PO Q8-10H PRN (Reason: pain) Qty: 15 0RF Interventions: ED Discharge Assessment Last Done: 12/21/24 05:53 Discharge Date/Time: 12/21/24 05:54 Print Language: [place] Islander
[2024-12-21 05:53] VITALS: BP 118/62; PULSE 82; RESP 20; TEMP 36.9; O2SAT 98
== END 2024-12-21 05:54 | disposition home or self-care (01) ==
PROVIDERS: Emergency Provider Internal Medicine
DX: G57.01 Lesion of sciatic nerve, right lower limb (principal); M54.41 Lumbago with sciatica, right side
CPT/HCPCS: 96372; 99284; J1885

== ENCOUNTER 2025-01-08 13:29 | Emergency (ER) | payer MEDICAID, SELFPAY ==
[2025-01-08 13:40] VITALS: BP 129/86; PULSE 96; RESP 20; TEMP 36.4; O2SAT 98; BMI 27.1
[2025-01-08 13:55] LABS: MANUAL DIFF FLAG NO
[2025-01-08 13:57] LABS: Basophils Percent Auto 0.3 % (0-2); Eosinophils Absolute Auto 0.2 X10*3/uL (0.0-0.4); Eosinophils Percent Auto 2.5 % (0-4); Hematocrit 35.7 % (37.0-47.0); Hemoglobin 11.7 g/dl (12.0-16.0); Imm Gran Abs Auto 0.02 X10*3/uL (0.00-0.03); Imm Gran Pct Auto 0.3 % (0.0-0.4); Lymphocytes Percent Auto 16.3 % (20-40); Mean Corpuscular HGB Conc 32.8 g/dl (31.0-35.0); Mean Corpuscular Hemoglobin 25.7 pg (27.0-33.0); Mean Corpuscular Volume 78.5 fL (80.0-98.0); Mean Platelet Volume 8.3 fL (9.4-12.3); Monocytes Absolute Auto 0.5 X10*3/uL (0.1-1.2); Monocytes Percent Auto 8.8 % (2-11); Neutrophils Absolute Auto 4.3 x10*3/uL (2.0-8.3); Neutrophils Percent Auto 71.8 % (45-73); Platelet Count 365 X10*3/uL (160-400); Red Blood Count 4.55 X10*6/uL (4.20-5.50); Red Cell Distribution Width 16.2 % (11.0-16.0)
--- NOTE | 2025-01-08 13:59 | ED_ITS ---
HPI - General Adult General Chief complaint: General Medical Stated complaint: Blood in Vomit History of Present Illness HPI narrative: patient left before completion of treatment by ed provider. Related Data Previous Rx's ?Medication ?Instructions ?Recorded clonazepam 0.5 mg tablet 0.5 mg PO QID 30 days #120 tabs 09/05/21 mirtazapine 7.5 mg tablet 7.5 mg PO BEDTIME 30 days #30 tabs 09/05/21 paroxetine HCl 20 mg tablet 20 mg PO DAILY 30 days #30 tabs 09/05/21 cefuroxime axetil 250 mg tablet 250 mg PO BID #12 tabs 05/06/24 fluconazole 150 mg tablet 150 mg PO Q3D 2 doses #2 tabs 05/08/24 nitrofurantoin 100 mg PO Q12H 7 days #14 caps 05/08/24 monohydrate/macrocrystals 100 mg capsule (Macrobid) amoxicillin 875 mg-potassium 1 tab PO BID 7 days #14 tabs 06/12/24 clavulanate 125 mg tablet bacitracin 500 unit/gram topical 1 appl topical BID #30 grams 06/12/24 ointment amoxicillin 875 mg-potassium 1 tab PO BID #14 tabs 06/20/24 clavulanate 125 mg tablet ibuprofen 600 mg tablet 600 mg PO Q8H PRN pain #30 tabs 06/20/24 prednisone 20 mg tablet 40 mg (2 x 20 mg) PO DAILY #10 tabs 07/18/24 tramadol 50 mg tablet 50 mg PO Q8-10H PRN pain #15 tabs 07/18/24 acetaminophen 500 mg capsule 1,000 mg (2 x 500 mg) PO Q8H PRN 12/17/24 fever or pain #14 caps cyclobenzaprine 10 mg tablet 10 mg PO TID PRN back pain #14 tabs 12/17/24 ketorolac 10 mg tablet 10 mg PO Q8H 3 days #9 tabs 12/21/24 oxycodone 5 mg tablet 5 mg PO Q6H PRN pain #12 tabs 12/21/24 Allergies Allergy/AdvReac Type Severity Reaction Status Date / Time gluten Allergy Intermediate Diarrhea Verified 01/08/25 13:42 [facility] Past Medical History Medical History Marijuana abuse Cocaine abuse Benzodiazepine abuse Social History Social History Household Members: Family Housing: Apartment Do you presently have visiting nurse or other home services: No Patient Tobacco Use Status: Never used Tobacco Substance Use Type: Marijuana Advance Directives: No Advance Directives Information Provided: No Do you have a plan to hurt others: No Plan service: No Sexual orientation: Don't Know Physical Exam ED Vital Signs: Vital Signs - 24 hr 01/08/25 13:40 Temperature 97.6 F Pulse Rate 96 Respiratory Rate 20 Blood Pressure 129/86 Pulse Oximetry 98 Oxygen Delivery Method Room Air BMI result Body Mass Index 27.1 Course Course Course Narrative: RME: 24 yold femamle with pmh of celiac presents to the ED for one episode of vomitting blood this morning without any abdominal pain. patient denies any blood in stool. labs ordered. Abdomen-benign. Not vomiting blood in the ED Medical Decision Making Lab Data 01/08/25 13:51 01/08/25 13:52 Labs: Lab Results 01/08/25 01/08/25 Range/Units 13:51 13:52 WBC 6.0 (4.8-10.8) X10*3/uL RBC 4.55 (4.20-5.50) X10*6/uL Hgb 11.7 L (12.0-16.0) g/dl Hct 35.7 L (37.0-47.0) % MCV 78.5 L (80.0-98.0) fL MCH 25.7 L (27.0-33.0) pg MCHC 32.8 (31.0-35.0) g/dl RDW 16.2 H (11.0-16.0) % Plt Count 365 (160-400) X10*3/uL MPV 8.3 L (9.4-12.3) fL Immature Gran % (Auto) 0.3 (0.0-0.4) % Neut % (Auto) 71.8 (45-73) % Lymph % (Auto) 16.3 L (20-40) % [place] % (Auto) 8.8 (2-11) % Eos % (Auto) 2.5 (0-4) % Baso % (Auto) 0.3 (0-2) % Lymph # (Auto) 1.0 L (1.2-4.9) X10*3/uL [place] # (Auto) 0.5 (0.1-1.2) X10*3/uL Eos # (Auto) 0.2 (0.0-0.4) X10*3/uL Baso # (Auto) 0.0 (0.0-0.2) X10*3/uL Abs Immat Gran (auto) 0.02 (0.00-0.03) X10*3/uL Absolute Neuts (auto) 4.3 (2.0-8.3) x10*3/uL Absolute Nucleated RBC 0.000 (0.0-0.012) X10*3/uL Nucleated RBC % (auto) 0.0 (0.0-0.2) /100WBC PT 11.6 (10.9-12.4) SEC INR 1.0 (0.9-1.1) APTT 31.9 (26.0-36.8) SEC Sodium 140 (135-145) mmol/L Potassium 4.2 (3.3-5.1) mmol/L Chloride 111 H (96-108) mmol/L Carbon Dioxide 22 (22-29) mmol/L Anion Gap 11 L (12-20) BUN 10 (9-16) mg/dL Creatinine 0.60 (0.5-1.4) mg/dL Estim Creat Clear Calc 157.4 Estimated GFR > 60 Random Glucose 91 (60-115) mg/dL Calcium 9.0 (8.4-10.2) mg/dL Total Bilirubin 0.3 (0.0-1.0) mg/dL AST 27 (5-31) U/L ALT 32 H (0-31) U/L Alkaline Phosphatase 48 (39-117) U/L Total Protein 7.4 (6.5-8.0) g/dL Albumin 4.6 (3.5-5.0) g/dL Lipase 11 (8-78) U/L Discharge Plan Discharge Clinical Impression: Diagnosis unknown Patient Disposition: Left W/O Completing Treatment Prescriptions: No Action clonazepam 0.5 mg Tablet 0.5 mg PO QID 30 Days Qty: 120 0RF paroxetine HCl 20 mg Tablet 20 mg PO DAILY 30 Days Qty: 30 0RF mirtazapine 7.5 mg Tablet 7.5 mg PO BEDTIME 30 Days Qty: 30 0RF cyclobenzaprine 10 mg tablet 10 mg PO TID PRN (Reason: back pain) Qty: 14 0RF acetaminophen 500 mg capsule 1,000 mg PO Q8H PRN (Reason: fever or pain) Qty: 14 0RF ketorolac 10 mg tablet 10 mg PO Q8H 3 Days Qty: 9 0RF oxycodone 5 mg tablet 5 mg PO Q6H PRN (Reason: pain) Qty: 12 0RF Rx Instructions: Partial Fill upon patient request. cefuroxime axetil 250 mg tablet 250 mg PO BID Qty: 12 0RF fluconazole 150 mg tablet 150 mg PO Q3D Qty: 2 0RF Rx Instructions: may repeat second dose 72 hrs after first dose if symptoms persist nitrofurantoin monohyd/m-cryst [Macrobid] 100 mg capsule 100 mg PO Q12H 7 Days Qty: 14 0RF Rx Instructions: must administer with a meal/food amoxicillin-pot clavulanate 875-125 mg tablet 1 tab PO BID 7 Days Qty: 14 0RF bacitracin 500 unit/gram ointment 1 appl topical BID Qty: 30 0RF amoxicillin-pot clavulanate 875-125 mg tablet 1 tab PO BID Qty: 14 0RF ibuprofen 600 mg tablet 600 mg PO Q8H PRN (Reason: pain) Qty: 30 0RF prednisone 20 mg tablet 40 mg PO DAILY Qty: 10 0RF tramadol 50 mg tablet 50 mg PO Q8-10H PRN (Reason: pain) Qty: 15 0RF Discharge Date/Time: 01/08/25 16:29
[2025-01-08 14:07] LABS: Prothrombin Time 11.6 SEC (10.9-12.4)
[2025-01-08 14:09] LABS: Partial Thromboplastin Time 31.9 SEC (26.0-36.8)
[2025-01-08 14:16] LABS: Alanine Aminotransferase 32 U/L (0-31); Albumin Level 4.6 g/dL (3.5-5.0); Alkaline Phosphatase 48 U/L (39-117); Anion Gap 11 (12-20); Aspartate Amino Transferase 27 U/L (5-31); Bilirubin Total 0.3 mg/dL (0.0-1.0); Blood Urea Nitrogen 10 mg/dL (9-16); Carbon Dioxide 22 mmol/L (22-29); Chloride 111 mmol/L (96-108); Creatinine Clr Calc Pharmacy 157.4; Estimated Glomerular Filt Rate > 60; Glucose Random 91 mg/dL (60-115); Lipase 11 U/L (8-78); Potassium 4.2 mmol/L (3.3-5.1); Sodium 140 mmol/L (135-145); Total Protein 7.4 g/dL (6.5-8.0)
== END 2025-01-08 16:29 | disposition left against medical advice (07) ==
LOC: HO.ED 16:25
PROVIDERS: Physician Assistant; Emergency Provider Emergency Medicine
DX: K92.0 Hematemesis (principal); Z53.21 Procedure and treatment not carried out due to patient leaving prior to being seen by health care provider
CPT/HCPCS: 36415; 80053; 83690; 85025; 85610; 85730; 99281

== ENCOUNTER 2025-03-29 03:33 | Emergency (ER) | payer MEDICAID, SELFPAY ==
--- NOTE | 2025-03-29 03:44 | ECG_ITS ---
Test Reason : chest pain Blood Pressure : */* mmHG Vent. Rate : 60 BPM Atrial Rate : 60 BPM P-R Int : 136 ms QRS Dur : 86 ms QT Int : 410 ms P-R-T Axes : 60 63 9 degrees QTcB Int : 410 ms Normal sinus rhythm with sinus arrhythmia Normal ECG When compared with ECG of 28-Aug-2021 12:51, No significant change was found Referred By: Generic ED Physician Electronically Signed By: LORIE GRIFFITHS MD
[2025-03-29 04:03] VITALS: BP 115/63; PULSE 74; RESP 16; TEMP 36.4; O2SAT 97; BMI 25.5
== END 2025-03-29 04:41 | disposition left against medical advice (07) ==
PROVIDERS: Emergency Provider Emergency Medicine; PCP Internal Medicine
DX: R07.9 Chest pain, unspecified (principal); Z53.21 Procedure and treatment not carried out due to patient leaving prior to being seen by health care provider
CPT/HCPCS: 93005; 99281; 99283

== ENCOUNTER → 2025-03-29 03:44 | Outpatient (BNV) | payer MEDICAID, SELFPAY | PROVIDERS: Emergency Provider Emergency Medicine; PCP Internal Medicine; Visit Provider Internal Medicine Cardiovascular Disease | DX: R07.9 Chest pain, unspecified (principal) | CPT/HCPCS: 93010 ==

== ENCOUNTER 2025-05-05 15:57 | Emergency (ER) | payer MEDICAID, SELFPAY ==
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
[2025-05-05 16:02] VITALS: BP 118/74; PULSE 102; O2SAT 99
[2025-05-05 16:04] VITALS: BP 113/71; PULSE 98; RESP 16; TEMP 36.6; O2SAT 98; BMI 25.8
[2025-05-05 18:02] VITALS: BP 120/74; PULSE 77; RESP 14; TEMP 36.8; O2SAT 99
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
[2025-05-05 19:23] VITALS: BP 120/74; PULSE 77; RESP 14; TEMP 36.8; O2SAT 99
== END 2025-05-05 19:35 | disposition home or self-care (01) ==
PROVIDERS: Emergency Provider Student in an Organized Health Care Education/Training Program; PCP Internal Medicine
DX: S06.0X0A Concussion without loss of consciousness, initial encounter (principal); R51.9 Headache, unspecified; M54.2 Cervicalgia; R42 Dizziness and giddiness; Y04.2XXA Assault by strike against or bumped into by another person, initial encounter; Y93.9 Activity, unspecified; Y92.9 Unspecified place or not applicable; Y99.8 Other external cause status
CPT/HCPCS: 70450; 72125; 99284

== ENCOUNTER → 2025-05-05 17:57 | Outpatient (BNV) | payer MEDICAID, SELFPAY | PROVIDERS: Emergency Provider Student in an Organized Health Care Education/Training Program; PCP Internal Medicine; Visit Provider Specialist | DX: M54.2 Cervicalgia (principal); S09.90XA Unspecified injury of head, initial encounter | CPT/HCPCS: 70450; 72125 ==

== ENCOUNTER 2025-06-13 19:03 | Emergency (ER) | payer MEDICAID, SELFPAY ==
[2025-06-13 19:12] VITALS: BP 125/87; PULSE 109; RESP 20; TEMP 36.4; O2SAT 98; BMI 25.1
--- NOTE | 2025-06-13 19:12 | ED_ITS ---
HPI - General Adult General Chief complaint: General Medical Stated complaint: Feels weird after doing using cocaine Related Data Previous Rx's ?Medication ?Instructions ?Recorded clonazepam 0.5 mg tablet 0.5 mg PO QID 30 days #120 t abs 09/05/21 mirtazapine 7.5 mg tablet 7.5 mg PO BEDTIME 30 days #3 0 tabs 09/05/21 paroxetine HCl 20 mg tablet 20 mg PO DAILY 30 days #30 tabs 09/05/21 cefuroxime axetil 250 mg tablet 250 mg PO BID #12 tabs 05/06/24 fluconazole 150 mg tablet 150 mg PO Q3D 2 doses #2 tab s 05/08/24 nitrofurantoin 100 mg PO Q12H 7 days #14 ca ps 05/08/24 monohydrate/macrocrystals 100 mg capsule (Macrobid) amoxicillin 875 mg-potassium 1 tab PO BID 7 days #14 t abs 06/12/24 clavulanate 125 mg tablet bacitracin 500 unit/gram topical 1 appl topical BID #3 0 grams 06/12/24 ointment amoxicillin 875 mg-potassium 1 tab PO BID #14 tabs 05/05 clavulanate 125 mg tablet ibuprofen 600 mg tablet 600 mg PO Q8H PRN pain #30 t abs 06/20/24 prednisone 20 mg tablet 40 mg (2 x 20 mg) PO DAILY # 10 tabs 07/18/24 tramadol 50 mg tablet 50 mg PO Q8-10H PRN pain #15 tabs 07/18/24 acetaminophen 500 mg capsule 1,000 mg (2 x 500 mg) PO Q8H PRN 12/17/24 fever or pain #14 caps cyclobenzaprine 10 mg tablet 10 mg PO TID PRN back yolanda n #14 tabs 12/17/24 ketorolac 10 mg tablet 10 mg PO Q8H 3 days #9 tabs 12/21/24 oxycodone 5 mg tablet 5 mg PO Q6H PRN pain #12 tab s 12/21/24 Allergies Allergy/AdvReac Type Severity Reaction Status Date / Time gluten Allergy Intermediate Diarrhea Verified 06/13/25 19:17 [facility] Past Medical History Medical History Marijuana abuse Cocaine abuse Benzodiazepine abuse Social History Social History Household Members: Family Housing: Apartment Do you presently have visiting nurse or other home services: No Patient Tobacco Use Status: Never used Tobacco Substance Use Type: Marijuana Advance Directives: No Advance Directives Information Provided: No service: No Sexual orientation: Don't Know Physical Exam ED Vital Signs: BMI result Body Mass Index 25.1 Course Course Course Narrative: This is a Rapid Medical Exam performed in triage by Willa Maguire PA-C. Full HPI, ROS and PE to be performed by primary ED provider. 25 yo F w/pmhx PTSD, anxiety presenting to the ED c/o bugging out with chest pain, dizziness, & blurry vision s/p snorting cocaine for the 1st time 20mins [employer]. PE: NAD, appears under the influence. ambulating w/steady gait Plan: EKG, labs, POTTER Medical Decision Making Lab Data 06/13/25 19:51 06/13/25 19:50 Labs: Lab Results 06/13/25 06/13/25 Range/Units 19:50 19:51 WBC 3.8 L (4.8-10.8) X10*3/uL RBC 4.83 (4.20-5.50) X10*6/uL Hgb 11.3 L (12.0-16.0) g/dl Hct 36.2 L (37.0-47.0) % MCV 74.9 L (80.0-98.0) fL MCH 23.4 L (27.0-33.0) pg MCHC 31.2 (31.0-35.0) g/dl RDW 18.0 H (11.0-16.0) % Plt Count 358 (160-400) X10*3/uL MPV 8.9 L (9.4-12.3) fL Immature Gran % (Auto) 0.3 (0.0-0.4) % Neut % (Auto) 59.3 (45-73) % Lymph % (Auto) 27.2 (20-40) % [place] % (Auto) 8.7 (2-11) % Eos % (Auto) 4.0 (0-4) % Baso % (Auto) 0.5 (0-2) % Lymph # (Auto) 1.0 L (1.2-4.9) X10*3/uL [place] # (Auto) 0.3 (0.1-1.2) X10*3/uL Eos # (Auto) 0.2 (0.0-0.4) X10*3/uL Baso # (Auto) 0.0 (0.0-0.2) X10*3/uL Abs Immat Gran (auto) 0.01 (0.00-0.03) X10*3/uL Absolute Neuts (auto) 2.3 (2.0-8.3) x10*3/uL Absolute Nucleated RBC 0.000 (0.0-0.012) X10*3/uL Nucleated RBC % (auto) 0.0 (0.0-0.2) /100WBC Sodium 139 (135-145) mmol/L Potassium 3.4 (3.3-5.1) mmol/L Chloride 108 (96-108) mmol/L Carbon Dioxide 20 L (22-29) mmol/L Anion Gap 14 (12-20) BUN 6 L (9-16) mg/dL Creatinine 0.61 (0.5-1.4) mg/dL Estim Creat Clear Calc 138.2 Estimated GFR > 60 Random Glucose 97 (60-115) mg/dL Calcium 8.9 (8.4-10.2) mg/dL Magnesium 1.8 (1.6-2.6) mg/dL Total Bilirubin 0.5 (0.0-1.0) mg/dL Direct Bilirubin 0.2 (0.0-0.5) mg/dL AST 22 (5-31) U/L ALT 22 (0-31) U/L Alkaline Phosphatase 52 (39-117) U/L Troponin I High Sens < 2.7 (<3.5-17.0) ng/L Total Protein 7.6 (6.5-8.0) g/dL Albumin 4.6 (3.5-5.0) g/dL Discharge Plan Discharge Clinical Impression: Cocaine use Patient Disposition: Left W/O Completing Treatment Prescriptions: No Action clonazepam 0.5 mg Tablet 0.5 mg PO QID 30 Days Qty: 120 0RF paroxetine HCl 20 mg Tablet 20 mg PO DAILY 30 Days Qty: 30 0RF mirtazapine 7.5 mg Tablet 7.5 mg PO BEDTIME 30 Days Qty: 30 0RF cyclobenzaprine 10 mg tablet 10 mg PO TID PRN (Reason: back pain) Qty: 14 0RF acetaminophen 500 mg capsule 1,000 mg PO Q8H PRN (Reason: fever or pain) Qty: 14 0RF ketorolac 10 mg tablet 10 mg PO Q8H 3 Days Qty: 9 0RF oxycodone 5 mg tablet 5 mg PO Q6H PRN (Reason: pain) Qty: 12 0RF Rx Instructions: Partial Fill upon patient request. cefuroxime axetil 250 mg tablet 250 mg PO BID Qty: 12 0RF fluconazole 150 mg tablet 150 mg PO Q3D Qty: 2 0RF Rx Instructions: may repeat second dose 72 hrs after first dose if symptoms persist nitrofurantoin monohyd/m-cryst [Macrobid] 100 mg capsule 100 mg PO Q12H 7 Days Qty: 14 0RF Rx Instructions: must administer with a meal/food amoxicillin-pot clavulanate 875-125 mg tablet 1 tab PO BID 7 Days Qty: 14 0RF bacitracin 500 unit/gram ointment 1 appl topical BID Qty: 30 0RF amoxicillin-pot clavulanate 875-125 mg tablet 1 tab PO BID Qty: 14 0RF ibuprofen 600 mg tablet 600 mg PO Q8H PRN (Reason: pain) Qty: 30 0RF prednisone 20 mg tablet 40 mg PO DAILY Qty: 10 0RF tramadol 50 mg tablet 50 mg PO Q8-10H PRN (Reason: pain) Qty: 15 0RF Discharge Date/Time: 06/13/25 20:21
[2025-06-13 19:14] VITALS: BP 136/93; PULSE 115; O2SAT 98
[2025-06-13 20:00] LABS: Hematocrit 36.2 % (37.0-47.0); Hemoglobin 11.3 g/dl (12.0-16.0); Imm Gran Abs Auto 0.01 X10*3/uL (0.00-0.03); Imm Gran Pct Auto 0.3 % (0.0-0.4); Lymphocytes Absolute Auto 1.0 X10*3/uL (1.2-4.9); MANUAL DIFF FLAG NO; Mean Corpuscular HGB Conc 31.2 g/dl (31.0-35.0); Mean Corpuscular Hemoglobin 23.4 pg (27.0-33.0); Mean Corpuscular Volume 74.9 fL (80.0-98.0); NRBC Abs Auto 0.000 X10*3/uL (0.0-0.012); NRBC Pct Auto 0.0 /100WBC (0.0-0.2); Platelet Count 358 X10*3/uL (160-400); Red Blood Count 4.83 X10*6/uL (4.20-5.50); White Blood Count 3.8 X10*3/uL (4.8-10.8)
[2025-06-13 20:15] LABS: Alanine Aminotransferase 22 U/L (0-31); Albumin Level 4.6 g/dL (3.5-5.0); Alkaline Phosphatase 52 U/L (39-117); Anion Gap 14 (12-20); Aspartate Amino Transferase 22 U/L (5-31); Blood Urea Nitrogen 6 mg/dL (9-16); Calcium 8.9 mg/dL (8.4-10.2); Carbon Dioxide 20 mmol/L (22-29); Chloride 108 mmol/L (96-108); Creatinine Clr Calc Pharmacy 138.2; Estimated Glomerular Filt Rate > 60; Magnesium 1.8 mg/dL (1.6-2.6); Potassium 3.4 mmol/L (3.3-5.1); Sodium 139 mmol/L (135-145); Total Protein 7.6 g/dL (6.5-8.0)
--- NOTE | 2025-06-13 20:19 | PC.NURSE ---
Per security, Pt and girlfriend got into vehicle and left the ED premises at 2009.
[2025-06-13 20:25] LABS: Troponin-I High Sensitivity < 2.7 ng/L (<3.5-17.0)
== END 2025-06-13 20:21 | disposition left against medical advice (07) ==
PROVIDERS: Physician Assistant; Emergency Provider Emergency Medicine; PCP Internal Medicine
DX: F14.99 Cocaine use, unspecified with unspecified cocaine-induced disorder (principal); F43.10 Post-traumatic stress disorder, unspecified; F41.9 Anxiety disorder, unspecified; R07.89 Other chest pain; R42 Dizziness and giddiness; H53.8 Other visual disturbances; Z79.899 Other long term (current) drug therapy
CPT/HCPCS: 36415; 80048; 80076; 83735; 84484; 85025; 99281; 99283